=== PATIENT | male | born 2000 ===

== ENCOUNTER 2022-09-29 17:59 | Emergency (ER) | payer MEDICAID, SELFPAY ==
--- NOTE | ~2022-09-29 | XR_ITS ---
EXAMINATION: CHEST 2 VIEWS CLINICAL INFORMATION: productive cough, sob. COMPARISON: 06/06/2017. TECHNIQUE: PA and lateral views of the chest obtained. FINDINGS: The lungs are well expanded. No focal infiltrate, effusion, edema, or pneumothorax. Cardiac and mediastinal silhouettes are within normal limits for technique. No acute bony abnormality seen XR/XR chest 2V IMPRESSION: No evidence of acute disease
[2022-09-29 18:07] VITALS: BP 149/77; PULSE 114; RESP 20; TEMP 38.3; O2SAT 99; BMI 33.3
--- NOTE | 2022-09-29 18:09 | ED.ASTHMA ---
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 Patient states that he got sick yesterday after getting caught in the rain he states that he now has a cough which is productive of thick dark phlegm with no blood in the sputum. States that he has chest tightness which is worse with breathing worse with coughing. He has a history of asthma states he has had uses an asthma inhaler more frequently is become less effective. Patient is also complaining of headache, sore throat and postnasal drip.. He denied fever or chills. He had nausea with no vomiting. He denied myalgias or arthralgias. Related Data Previous Rx's Medication Instructions Recorded acetaminophen 500 mg tablet 1,000 mg PO Q6H PRN fever or pain 09/29/22 (Tylenol Extra Strength) #20 tabs albuterol sulfate 90 mcg/actuation 2 puff inhalation Q4-6H PRN 09/29/22 aerosol inhaler (ProAir HFA) shortness of breath or wheezing #8.5 grams doxycycline hyclate 100 mg tablet 100 mg PO Q12H 7 days #14 tabs 09/29/22 prednisone 20 mg tablet 60 mg PO DAILY 5 days #15 tabs 09/29/22 Allergies Allergy/AdvReac Type Severity Reaction Status Date / Time No Known Allergies Allergy Unverified 11/09/19 19:26 [No Known Allergies*] Review of Systems Review of Systems: Yes all other systems are reviewed and are negative [facility] Past Medical History [facility] Narrative: Past medical history: Asthma. Surgical history: Cholecystectomy. Social history: Denies tobacco use. He occasionally drinks alcohol. He denies drug use. Social History Social History Advance Directives: No Advance Directives Information Provided: No Physical Exam Vital Signs: Vital Signs: Last Vital Signs Temp 101.7 F H 09/29/22 20:31 Pulse 107 H 09/29/22 20:31 Resp 20 09/29/22 18:07 BP 130/80 09/29/22 20:31 Pulse Ox 99 09/29/22 20:31 O2 Del Method Room Air 09/29/22 20:31 BMI result Body Mass Index 33.3 Vital signs revealed an elevated temperature of a 101.7 degrees and an elevated pulse of 107 General: Awake, alert in no distress Head: Normocephalic, atraumatic EENT: PERRL, Lids normal, sclera normal, conjunctiva normal, nose normal , ears normal, throat without erythema or exudates Neck: Supple, no adenopathy, trachea midline and nontender Lung: breath sounds symmetric, mild diffuse wheezing, no rales or rhonchi Chest: symmetric movement, nontender Heart: regular rate and rhythm, normal S1, S2 no murmurs or rubs Abdomen: soft, non-tender, nondistended, normal bowel sounds Back: no vertebral tenderness, no CVAT Extremities: no deformities, moves all extremities symmetrically Skin: no rashes, no lesion, normal color and warmth Neuro: Awake, alert, oriented, normal speech, cranial nerves intact, moves all extremities symmetrically Psych: Pleasant, cooperative Course Course Course Narrative: RME - 21 yo male with history of asthma presents to the ER for evaluation of SOB, productive cough and subjective fevers since last night after being outside in the humid rain which he feels like exacerbated his asthma. He has been using his inhaler without improvement. Lungs CTAB in triage w/ SpO2 98%. Speaking in complete sentences. Febrile 100.9 with HR 110-120s.+sick contacts at work Plan: tylenol, CXR, viral swabs. Medications Administered Discontinued Medications Generic Name Dose Route Start Last Admin Trade Name Brendanq PRN Reason Stop Dose Admin Acetaminophen 975 mg 09/29/22 18:11 09/29/22 19:45 Acetaminophen 325 Mg Tablet PO 09/29/22 18:12 975 mg ONCE ONE Administration Doxycycline Monohydrate 100 mg 09/29/22 20:49 09/29/22 21:00 Doxycycline Monohydrate 100 Mg Capsule PO 09/29/22 20:50 100 mg ONCE STA Administration Prednisone 60 mg 09/29/22 20:49 09/29/22 21:00 Prednisone 20 Mg Tablet PO 09/29/22 20:50 60 mg ONCE ONE Administration Medical Decision Making Medical Decision Making MDM Narrative: 21-year-old male with a history of asthma who presents emergency department for evaluation of cough, shortness of breath, chest tightness x2 days. Patient's vital signs did reveal an elevated pulse and a fever pain. Lung exam revealed diffuse wheezing. Following evaluation was ordered chest x-ray, COVID-19, influenza and rapid strep. Laboratory evaluation revealed negative COVID-19 influenza and rapid strep. Chest x-ray revealed no evidence of pneumonia. Patient's presentation is consistent with acute bronchitis with asthma exacerbation. Patient was given prednisone 60 mg orally and doxycycline 100 mg orally. He was prescribed doxycycline 100 mg twice a day for 7 days and prednisone 60 mg once a day for 5 days. Differential Diagnosis Differential Diagnoses: The differential diagnosis associated with the presentation includes Differential diagnosis includes was not limited to acute viral syndrome, pneumonia, bronchitis, COVID-19, influenza, strep throat Admission/Observation Consideration of admission/observation: Escalation of care including admission/observation considered Lab Data [facility] Lab Attestation statement: I reviewed the patient's lab results. My interpretation of the patient's laboratory evaluation is as follows: COVID-19 was negative, influenza was negative, strep was negative Labs: Lab Results 09/29/22 09/29/22 09/29/22 Range/Units 18:15 18:15 19:49 COVID-19 (LILIANA) Negative (Negative) COVID-19 Clin Com See Note Influenza Type A (AKBAR) Negative (Negative) Influenza Type B (AKBAR) Negative (Negative) Influenza A & B Note See Note S. pyogenes GrpA AKBAR Negative (Negative) Independent Interpretation I performed an independent interpretation of an: Plain X-Ray Interpretation: My independent interpretation patient's two view chest x-ray is as follows: No acute findings Radiology Impression Discussion of test interpretation with radiology: I have reviewed the radiologist's reading. Radiologist Impression: XR chest 2V IMPRESSION: No evidence of acute disease Dictated By:Chepe Casillas MD Independent Historian Clinical information obtained from an independent historian. History obtained from or confirmed by: Other (Mother) Prescription Management I considered prescription management with: Antibiotic Chronic Conditions Patient?s care impacted by: Other (Asthma) Discharge Plan Discharge Clinical Impression: Bronchitis Asthma with exacerbation Qualifiers: Asthma severity: moderate Asthma persistence: unspecified Qualified Code(s): J45.901 - Unspecified asthma with (acute) exacerbation Patient Disposition: Home, Self-Care Instructions: Asthma (ED), Acute Bronchitis (ED) Additional Instructions: Take prednisone 20 mg pills, 3 pills once a day for 5 days. While you are taking prednisone, do not take any NSAIDs (Motrin, Advil, ibuprofen, Aleve, naproxen). Use the albuterol inhaler with the spacer, 2 puffs every 4-6 hours as needed for shortness of breath and wheezing.. Take Tylenol (acetaminophen) 500 mg pills, 2 pills every 6 hours as needed for pain or fever. Follow-up with your doctor in 2 days. Please return to the emergency department if your symptoms get worse or if you develop any symptoms that are concerning to you. Please see work note Prescriptions: New prednisone 20 mg tablet 60 mg PO DAILY 5 Days Qty: 15 0RF albuterol sulfate [ProAir HFA] 90 mcg/actuation HFA aerosol inhaler 2 puff inhalation Q4-6H PRN (Reason: shortness of breath or wheezing) Qty: 8.5 0RF doxycycline hyclate 100 mg tablet 100 mg PO Q12H 7 Days Qty: 14 0RF acetaminophen [Tylenol Extra Strength] 500 mg tablet 1,000 mg PO Q6H PRN (Reason: fever or pain) Qty: 20 0RF Stand Alone Forms: Work/School Release Interventions: ED Discharge Assessment Last Done: 09/29/22 21:04 Discharge Date/Time: 09/29/22 21:04 Print Language: Cypriot
[2022-09-29 19:10] LABS: COVID-19 Test Negative (Negative); IDNOW Serial# 55D5AD1C; IDNOW Serial# 9DB6401D; Influenza A Negative (Negative); Influenza B2 Negative (Negative)
[2022-09-29] MEDS: Acetaminophen 325 MG TABLET 975 MG PO (19:45)
[2022-09-29 20:18] LABS: IDNOW Serial# 08D9AD1C; Strep A Nucleic Acid Negative (Negative)
[2022-09-29 20:31] VITALS: BP 130/80; PULSE 107; TEMP 38.7; O2SAT 99
[2022-09-29] MEDS: predniSONE 20 MG TABLET 60 MG PO (21:00)
[2022-09-29] MEDS: Doxycycline Monohydrate 100 MG CAPSULE PO (21:00)
--- NOTE | 2022-09-29 21:02 | PC.NURSE ---
pt medicated per DARREN martinez w/ dietitian teaching at bedside
== END 2022-09-29 21:04 | disposition home or self-care (01) ==
PROVIDERS: Physician Assistant; Emergency Provider Emergency Medicine Emergency Medical Services
DX: J45.901 Unspecified asthma with (acute) exacerbation (principal); R06.02 Shortness of breath; Z20.822 Contact with and (suspected) exposure to COVID-19; Z20.828 Contact with and (suspected) exposure to other viral communicable diseases; Z79.899 Other long term (current) drug therapy
CPT/HCPCS: 71046; 87502; 87635; 87651; 99283

== ENCOUNTER 2022-10-14 08:08 | Emergency (ER) | payer MEDICAID, SELFPAY ==
--- NOTE | ~2022-10-14 | XR_ITS ---
EXAMINATION: XR CHEST CLINICAL INFORMATION: Anterior chest pressure. COMPARISON: 09/29/2022 chest radiographs. TECHNIQUE: Frontal view of the chest was obtained. FINDINGS: The lungs are clear. The heart and mediastinal structures are unremarkable. XR/XR chest 1V IMPRESSION: No acute cardiopulmonary process.
--- NOTE | ~2022-10-14 | CT_ITS ---
EXAMINATION: CT ANGIOGRAM OF THE CHEST WITH AND WITHOUT CONTRAST (CT PULMONARY ANGIOGRAM FOR PE) CLINICAL INFORMATION: Reason for Exam + dimer, SOB COMPARISON: None available. TECHNIQUE: Prior to contrast administration, noncontrast localization images were obtained. Subsequently, multidetector volumetric imaging was performed from the thoracic inlet to below the diaphragms following the administration of 65 mL Omnipaque 350 intravenous contrast. No contrast reaction reported Sagittal, coronal, and MIP oblique sagittal reformatted images were obtained on the CT workstation, uploaded to PACS, and reviewed. This CT examination was performed using dose optimization techniques as appropriate, variously including the following: *Automated exposure control *Adjustment of mA and/or kV according to patient size (this includes techniques or standardized protocols for targeted exams where dose is matched to indication/reason for exam; i.e. extremities or head) *Use of iterative reconstruction technique Total exam dose-length product 331 mGy-cm FINDINGS: HOSPITALITY SERVICES MANAGER: Negative QUALITY OF STUDY/CONTRAST BOLUS: Satisfactory. HEART AND GREAT VESSELS: Heart is not enlarged. No pericardial effusion. Degree of coronary calcifications: None. Nonaneurysmal aorta with patency of the aortic branch vessels. Pulmonary arteries are not enlarged and no intra-arterial filling defects identified to suggest pulmonary thromboembolism. No ventricular bowing or contrast reflux into the inferior vena cava into suggest right heart strain. LUNG: Trachea and bronchi are patent. Lingular consolidation with air bronchogram. Scattered atelectasis. Slight mosaic attenuation right upper lobe. No suspicious lung nodules. PLEURA: 3 mm right minor fissural lymph node. MEDIASTINUM: Unremarkable thyroid. Nonspecific lymph nodes, prevascular lymph node measuring 1.3 cm, right hilar lymph node measuring 1.6 cm. Small hiatal hernia. CHEST WALL/AXILLA: Nonspecific axillary lymph nodes. OSSEOUS STRUCTURES: No acute or suspicious osseous abnormality. UPPER ABDOMEN: Enlarged low density liver. Status post cholecystectomy. CT/CT angio chest PE protocol IMPRESSION: Lingular pneumonia. No CT evidence of pulmonary thromboembolism. Enlarged fatty liver. VTE: negative 6
--- NOTE | 2022-10-14 08:11 | ECG_ITS ---
Test Reason : CHEST PRESSURE Blood Pressure : / mmHG Vent. Rate : 082 BPM Atrial Rate : 082 BPM P-R Int : 140 ms QRS Dur : 102 ms QT Int : 370 ms P-R-T Axes : 057 -02 -13 degrees QTc Int : 432 ms Normal sinus rhythm Minimal voltage criteria for LVH, may be normal variant ( R in aVL ) Borderline ECG No previous ECGs available Referred By: Generic ED Physician Electronically Signed By:CINDI LANGSTON
--- NOTE | 2022-10-14 08:24 | ED_ITS ---
HPI - General Adult General Chief complaint: General Medical Stated complaint: chest pain, difficulty breathing Time Seen by Provider: 10/14/22 08:14 Source: patient Mode of arrival: ambulatory Limitations: no limitations History of Present Illness HPI narrative: This is a 21-year-old male without significant medical history presenting to the emergency department for evaluation of chest pain that started last night and is still currently present. Patient reports chest pain awoke him last night, he reports this chest pain was substernal with radiation into left arm and left back, he reports at the time the chest pain started pain was 30/10. Now reporting a constant substernal 5/10 chest pressure without radiation. Reporting some associated shortness of breath. Patient reports the chest pain is worse with deep breathing and better at rest. The patient does not know much about his family history however no known history of sudden cardiac . Patient does not smoke, no recent travel not on hormone replacement therapy. Patient denies fevers, chills, nausea, vomiting, abdominal pain, headache, v ision changes, dizziness and weakness Related Data Previous Rx's Medication Instructions Recorded acetaminophen 500 mg tablet 1,000 mg PO Q6H PRN fever or pain 09/29/22 (Tylenol Extra Strength) #20 tabs albuterol sulfate 90 mcg/actuation 2 puff inhalation Q4-6H PRN 09/29/22 aerosol inhaler (ProAir HFA) shortness of breath or wheezing #8.5 grams doxycycline hyclate 100 mg tablet 100 mg PO Q12H 7 days #14 tabs 09/29/22 prednisone 20 mg tablet 60 mg PO DAILY 5 days #15 tabs 09/29/22 albuterol sulfate 90 mcg/actuation 2 inh inhalation Q4-6H PRN 10/14/22 breath activated powder inhaler shortness of breath or wheezing #1 ea doxycycline hyclate 100 mg capsule 100 mg PO BID 10 days #20 caps 10/14/22 prednisone 20 mg tablet 20 mg PO DAILY 5 days #5 tabs 10/14/22 Allergies Allergy/AdvReac Type Severity Reaction Status Date / Time No Known Allergies Allergy Unverified 11/09/19 19:26 [No Known Allergies*] Review of Systems Review of Systems: Constitutional : No Weight loss, No Fever, No Chills, No Fatigue, No Malaise ENT/Mouth : No sore throat, No Rhinorrhea Eyes: No Eye Pain, No Swelling, No Redness Cardiovascular : + Chest Pain, + SOB, No Dyspnea on Exertion, No Orthopnea, No Edema, No Palpitations Respiratory : No Cough, No Sputum, No Wheezing Gastrointestinal : No Nausea, No Vomiting, No Diarrhea, No Constipation, No abdominal Pain, No Hematochezia, No Melena Genitourinary : No Dysuria, No Urinary Frequency, No Hematuria, Musculoskeletal : No joint pain, No Myalgias, No Joint Swelling Skin : No Skin Lesions, No rash Neuro : No Weakness, No Numbness, No Dizziness, No Headache Psych : No Anxiety/Panic, No Depression All other systems reviewed and are negative Yes all other systems are reviewed and are negative [facility] Past Medical History Attestation statement: The following information was validated with the patient. Source: old records reviewed and nursing notes reviewed Social History Social History Alcohol intake: never Smoked in Last 30 Days: No Use of substances other than those prescribed or required for medical reasons: No Advance Directives: No Physical Exam ED Vital Signs: Vital Signs - 24 hr 10/14/22 08:41 10/14/22 11:08 Temperature 99.0 F 98.4 F Pulse Rate 84 64 Respiratory Rate 16 16 Blood Pressure 118/72 123/67 Pulse Oximetry 98 100 Oxygen Delivery Method Room Air Room Air BMI result Body Mass Index 34.0 vss Appearance: Alert.? Oriented X3.? No acute distress.? Patient comfortable appearing Head: Normocephalic, atraumatic, no step-offs or deformities Eyes: Pupils equal, round and reactive to light.? ENT: Pharynx normal.? Neck: Normal inspection.? Neck supple.? CVS: Normal heart rate and rhythm.? Pulses normal.? Respiratory: No respiratory distress.? Breath sounds normal.? Abdomen: Soft and nontender.? Skin: Skin warm and dry.? Normal skin color.? Normal skin turgor.? Extremities: No lower extremity edema.? No calf ttp. 5/5 strength to bilateral upper and lower extremities Neuro: Oriented X 3.? No motor deficit.? No sensory deficit. CN 2-12 intact Course Reevaluation(s) Reevaluation #1: CBC within normal limits in normocytic anemia is noted. D-dimer negative, no need for CTA, low suspicion for PE, no significant risk factors, PERC negative. Chemistry pending & trop pending Time: 09:30 Reevaluation #2: Chemistry unremarkable, troponin negative, EKG nonischemic unlikely ACS 2nd troponin will be obtained. BNP within normal limits no signs of fluid overload or CHF on exam. Received a call from the lab this states that they made an error in patient's 1st D-dimer D-dimer now positive, will rule out PE with CTA at this time. Chest x-ray unremarkable. Pending CTA and re-evaluation. Time: 10:01 Reevaluation #3: CTA with lingular pneumonia, will treat with doxycycline and give him outpatient antibiotics, not hypoxic her meeting any criteria for inpatient admission. CT evidence of pulmonary thromboembolism, PTE negative. Patient's heart score is 0, no need for repeat troponin, EKG is nonischemic chest pain and shortness of breath likely secondary to pneumonia. Will treat with albuterol, doxycycline, prednisone discharge home with PCP follow-up. Will obtain ambulatory O2 prior to patient being discharged. Time: 11:07 Additional Reevaluation(s): Second troponin negative patient is ambulatory oxygen saturation from 93-97% on room air, not complaining of chest pain or shortness of breath with ambulation p atient feeling better. Likely patient having symptoms secondary to pneumonia. Will be discharged home on doxycycline, prednisone and albuterol peer Educated patient on diagnosis and treatment plan, answered all question, patient verbalizes understanding. At this time patient will be discharged home, advised to return with new or worsening symptoms. Educated on worrisome signs and symptoms and when to return. At this time I feel comfortable discharge home. Medications Administered Discontinued Medications Generic Name Dose Route Start Last Admin Trade Name Brendanq PRN Reason Stop Dose Admin Doxycycline Monohydrate 100 mg 10/14/22 11:09 10/14/22 11:15 Doxycycline Monohydrate 100 Mg Capsule PO 10/14/22 11:10 100 mg ONCE ONE Administration Sodium Chloride 1,000 mls @ 999 mls/hr 10/14/22 10:45 10/14/22 11:51 Ns IV 10/14/22 11:45 Infused .Q1H1M MANAN Infusion Iohexol 65 ml 10/14/22 10:31 10/14/22 10:31 Iohexol 350 Mg/Ml 100 Ml Infus..Btl IV 10/14/22 10:32 65 ml ONCE ONE Administration Ketorolac Tromethamine 30 mg 10/14/22 10:02 10/14/22 10:35 Ketorolac Tromethamine 15 Mg/Ml Vial IVPUSH 10/14/22 10:03 30 mg ONCE ONE Administration Ondansetron HCl 4 mg 10/14/22 10:29 10/14/22 10:35 Ondansetron Hcl 4 Mg/2 Ml Vial IVPUSH 10/14/22 10:30 4 mg ONCE ONE Administration Medical Decision Making Medical Decision Making [facility] Narrative: 08 21 year old male presents with pleuritic chest pain, shortness of breath that started last night, worse last night better this morning however still present. Physical exam benign. Patient well appearing. This is likely noncardiac related chest pain versus anxiety. However will rule out ACS, PE. Unlikely dissection, ruptured aneurysm, pneumothorax. Other differentials include viral illness. Unlikely pericarditis, endocarditis myocarditis. Plan at this time labs, EKG, D-dimer, BNP, chest x-ray. Differential Diagnosis Differential Diagnoses: The differential diagnosis associated with the presentation includes This is likely noncardiac related chest pain versus anxiety. However will rule out ACS, PE. Unlikely dissection, ruptured aneurysm, pneumothorax. Other differentials include viral illness. Unlikely pericarditis, endocarditis myocarditis. Admission/Observation Consideration of admission/observation: Escalation of care including admission/observation considered Lab Data [facility] Lab Attestation statement: I reviewed the patient's lab results. 10/14/22 08:40 10/14/22 08:40 Labs: Lab Results 10/14/22 10/14/22 10/14/22 Range/Units 08:40 08:40 08:40 WBC (4.8-10.8) X10*3/uL RBC (4.60-5.80) X10*6/uL Hgb (14.0-18.0) g/dl Hct (42.0-52.0) % MCV (80.0-98.0) fL MCH (27.0-33.0) pg MCHC (31.0-36.0) g/dl RDW (11.0-16.0) % Plt Count (160-400) X10*3/uL MPV (9.4-12.4) fL Immature Gran % (Auto) (0.0-0.4) % Neut % (Auto) (45-73) % Lymph % (Auto) (20-40) % [place] % (Auto) (2-11) % Eos % (Auto) (0-4) % Baso % (Auto) (0-2) % Lymph # (Auto) (1.2-4.9) X10*3/uL [place] # (Auto) (0.1-1.2) X10*3/uL Eos # (Auto) (0.0-0.4) X10*3/uL Baso # (Auto) (0.0-0.2) X10*3/uL Abs Immat Gran (auto) (0.00-0.03) X10*3/uL Absolute Neuts (auto) (2.0-8.3) x10*3/uL Absolute Nucleated RBC (0.0-0.012) X10*3/uL Nucleated RBC % (auto) (0.0-0.2) /100WBC PT (11.1-13.3) SEC INR (0.9-1.1) D-Dimer High Sensitivty Sodium 139 (135-145) mmol/L Potassium 4.1 (3.3-5.1) mmol/L Chloride 106 (96-108) mmol/L Carbon Dioxide 24 (22-29) mmol/L Anion Gap 13 (12-20) BUN 7 L (9-16) mg/dL Creatinine 0.71 (0.5-1.4) mg/dL Estim Creat Clear Calc 169.2 Estimated GFR > 60 Random Glucose 99 (60-115) mg/dL Calcium 9.5 (8.4-10.2) mg/dL Magnesium 2.0 (1.6-2.6) mg/dL Total Bilirubin 0.9 (0.0-1.0) mg/dL AST 24 (5-37) U/L ALT 30 (0-40) U/L Alkaline Phosphatase 71 (39-117) U/L Troponin I High Sens < 2.7 (<3.5-35.0) ng/L B-Natriuretic Peptide < 10 (<100) pg/mL Total Protein 7.4 (6.5-8.0) g/dL Albumin 4.2 (3.5-5.0) g/dL 10/14/22 10/14/22 10/14/22 Range/Units 08:40 09:10 09:10 WBC 9.4 (4.8-10.8) X10*3/uL RBC 5.07 (4.60-5.80) X10*6/uL Hgb 13.9 L (14.0-18.0) g/dl Hct 41.1 L (42.0-52.0) % MCV 81.1 (80.0-98.0) fL MCH 27.4 (27.0-33.0) pg MCHC 33.8 (31.0-36.0) g/dl RDW 13.2 (11.0-16.0) % Plt Count 301 (160-400) X10*3/uL MPV 9.4 (9.4-12.4) fL Immature Gran % (Auto) 1.0 H (0.0-0.4) % Neut % (Auto) 66.0 (45-73) % Lymph % (Auto) 21.0 (20-40) % [place] % (Auto) 8.1 (2-11) % Eos % (Auto) 3.4 (0-4) % Baso % (Auto) 0.5 (0-2) % Lymph # (Auto) 2.0 (1.2-4.9) X10*3/uL [place] # (Auto) 0.8 (0.1-1.2) X10*3/uL Eos # (Auto) 0.3 (0.0-0.4) X10*3/uL Baso # (Auto) 0.1 (0.0-0.2) X10*3/uL Abs Immat Gran (auto) 0.09 H (0.00-0.03) X10*3/uL Absolute Neuts (auto) 6.2 (2.0-8.3) x10*3/uL Absolute Nucleated RBC 0.000 (0.0-0.012) X10*3/uL Nucleated RBC % (auto) 0.0 (0.0-0.2) /100WBC PT 14.5 H (11.1-13.3) SEC INR 1.2 H (0.9-1.1) D-Dimer High Sensitivty TNP 262 Sodium (135-145) mmol/L Potassium (3.3-5.1) mmol/L Chloride (96-108) mmol/L Carbon Dioxide (22-29) mmol/L Anion Gap (12-20) BUN (9-16) mg/dL Creatinine (0.5-1.4) mg/dL Estim Creat Clear Calc Estimated GFR Random Glucose (60-115) mg/dL Calcium (8.4-10.2) mg/dL Magnesium (1.6-2.6) mg/dL Total Bilirubin (0.0-1.0) mg/dL AST (5-37) U/L ALT (0-40) U/L Alkaline Phosphatase (39-117) U/L Troponin I High Sens (<3.5-35.0) ng/L B-Natriuretic Peptide (<100) pg/mL Total Protein (6.5-8.0) g/dL Albumin (3.5-5.0) g/dL 10/14/22 Range/Units 11:13 WBC (4.8-10.8) X10*3/uL RBC (4.60-5.80) X10*6/uL Hgb (14.0-18.0) g/dl Hct (42.0-52.0) % MCV (80.0-98.0) fL MCH (27.0-33.0) pg MCHC (31.0-36.0) g/dl RDW (11.0-16.0) % Plt Count (160-400) X10*3/uL MPV (9.4-12.4) fL Immature Gran % (Auto) (0.0-0.4) % Neut % (Auto) (45-73) % Lymph % (Auto) (20-40) % [place] % (Auto) (2-11) % Eos % (Auto) (0-4) % Baso % (Auto) (0-2) % Lymph # (Auto) (1.2-4.9) X10*3/uL [place] # (Auto) (0.1-1.2) X10*3/uL Eos # (Auto) (0.0-0.4) X10*3/uL Baso # (Auto) (0.0-0.2) X10*3/uL Abs Immat Gran (auto) (0.00-0.03) X10*3/uL Absolute Neuts (auto) (2.0-8.3) x10*3/uL Absolute Nucleated RBC (0.0-0.012) X10*3/uL Nucleated RBC % (auto) (0.0-0.2) /100WBC PT (11.1-13.3) SEC INR (0.9-1.1) D-Dimer High Sensitivty Sodium (135-145) mmol/L Potassium (3.3-5.1) mmol/L Chloride (96-108) mmol/L Carbon Dioxide (22-29) mmol/L Anion Gap (12-20) BUN (9-16) mg/dL Creatinine (0.5-1.4) mg/dL Estim Creat Clear Calc Estimated GFR Random Glucose (60-115) mg/dL Calcium (8.4-10.2) mg/dL Magnesium (1.6-2.6) mg/dL Total Bilirubin (0.0-1.0) mg/dL AST (5-37) U/L ALT (0-40) U/L Alkaline Phosphatase (39-117) U/L Troponin I High Sens < 2.7 (<3.5-35.0) ng/L B-Natriuretic Peptide (<100) pg/mL Total Protein (6.5-8.0) g/dL Albumin (3.5-5.0) g/dL Independent Interpretation I performed an independent interpretation of an: EKG (Ventricular rate of 82, NV normal, QRS normal, QT/QTC normal. EKG with normal sinus rhythm no ST elevations or inversions concerning for acute ischemia.) and Plain X-Ray Radiology Impression Discussion of test interpretation with radiology: I have reviewed the radiologist's reading. Core Measures AMI core measures followed: Yes Measure exclusions: not indicated Critical Care Time Critical Care Time Critical Care Time: No Discharge Plan Discharge Clinical Impression: Pneumonia Patient Disposition: Home, Self-Care Additional Instructions: Take your medications as prescribed. If you were prescribed antibiotics today, it is important that you take your medication to their entirety, do not skip any doses, do not finish them early. Follow-up with your primary care provider this week. Return to the emergency department with new or worsening symptoms. Such as fevers, chills, chest pain, shortness of breath, nausea, vomiting, dizziness, headache, vision changes, lethargy In case of emergency call 911 XR/XR chest 1V IMPRESSION: No acute cardiopulmonary process. CT/CT angio chest PE protocol IMPRESSION: Lingular pneumonia. No CT evidence of pulmonary thromboembolism. Enlarged fatty liver. ? VTE: negative Prescriptions: New doxycycline hyclate 100 mg capsule 100 mg PO BID 10 Days Qty: 20 0RF prednisone 20 mg tablet 20 mg PO DAILY 5 Days Qty: 5 0RF albuterol sulfate 90 mcg/actuation aerosol powdr breath activated 2 inh inhalation Q4-6H PRN (Reason: shortness of breath or wheezing) Qty: 1 0RF No Action prednisone 20 mg tablet 60 mg PO DAILY 5 Days Qty: 15 0RF albuterol sulfate [ProAir HFA] 90 mcg/actuation HFA aerosol inhaler 2 puff inhalation Q4-6H PRN (Reason: shortness of breath or wheezing) Qty: 8.5 0RF doxycycline hyclate 100 mg tablet 100 mg PO Q12H 7 Days Qty: 14 0RF acetaminophen [Tylenol Extra Strength] 500 mg tablet 1,000 mg PO Q6H PRN (Reason: fever or pain) Qty: 20 0RF Referrals: [facility] Cardiovascular Services [Provider Group] - 3 days Physician,None [Primary Care Provider] - 2 days Stand Alone Forms: Work/School Release
[2022-10-14 08:41] VITALS: BP 118/72; PULSE 84; RESP 16; TEMP 37.2; O2SAT 98; BMI 34.0
[2022-10-14 09:06] LABS: B Type Natriuretic Peptide < 10 pg/mL (<100)
[2022-10-14 09:07] LABS: Troponin-I High Sensitivity < 2.7 ng/L (<3.5-35.0)
--- NOTE | 2022-10-14 09:13 | PC.NURSE ---
PT IS A/O X 4 NO SOB/GAYLE NOTED SPEAKS IN FULL SENTENCES. LUNGS - CTA. C/O CHEST PRESSURE. HEART SOUNDS REGULAR. ABD SOFT AND NON-TENDER. NO EDEMA NOTED. HEPLOCK # 18 TO R AC. PT AWARE OF PLAN OF CARE.
[2022-10-14 09:28] LABS: Basophils Absolute Auto 0.1 X10*3/uL (0.0-0.2); Basophils Percent Auto 0.5 % (0-2); Eosinophils Absolute Auto 0.3 X10*3/uL (0.0-0.4); Eosinophils Percent Auto 3.4 % (0-4); Hematocrit 41.1 % (42.0-52.0); Hemoglobin 13.9 g/dl (14.0-18.0); Imm Gran Abs Auto 0.09 X10*3/uL (0.00-0.03); Mean Corpuscular HGB Conc 33.8 g/dl (31.0-36.0); Mean Corpuscular Hemoglobin 27.4 pg (27.0-33.0); Mean Corpuscular Volume 81.1 fL (80.0-98.0); Mean Platelet Volume 9.4 fL (9.4-12.4); Monocytes Absolute Auto 0.8 X10*3/uL (0.1-1.2); Monocytes Percent Auto 8.1 % (2-11); Neutrophils Absolute Auto 6.2 x10*3/uL (2.0-8.3); Platelet Count 301 X10*3/uL (160-400); Red Blood Count 5.07 X10*6/uL (4.60-5.80); Red Cell Distribution Width 13.2 % (11.0-16.0); White Blood Count 9.4 X10*3/uL (4.8-10.8)
[2022-10-14 09:47] LABS: Alanine Aminotransferase 30 U/L (0-40); Albumin Level 4.2 g/dL (3.5-5.0); Alkaline Phosphatase 71 U/L (39-117); Anion Gap 13 (12-20); Aspartate Amino Transferase 24 U/L (5-37); Bilirubin Total 0.9 mg/dL (0.0-1.0); Blood Urea Nitrogen 7 mg/dL (9-16); Calcium 9.5 mg/dL (8.4-10.2); Carbon Dioxide 24 mmol/L (22-29); Chloride 106 mmol/L (96-108); Creatinine Clr Calc Pharmacy 169.2; Estimated Glomerular Filt Rate > 60; Glucose Random 99 mg/dL (60-115); Potassium 4.1 mmol/L (3.3-5.1); Sodium 139 mmol/L (135-145); Total Protein 7.4 g/dL (6.5-8.0)
[2022-10-14 09:50] LABS: D Dimer High Sensitivity 262 NG/ML; INTERNATIONAL NORM RATIO 1.2 (0.9-1.1); Prothrombin Time 14.5 SEC (11.1-13.3)
[2022-10-14] MEDS: iohexoL 350 MG/ML 100 ML INFUS..BTL 65 ML IV (10:31)
[2022-10-14] MEDS: ondansetron HCL 4 MG/2 ML VIAL IVPUSH (10:35)
[2022-10-14] MEDS: 0.9 % Sodium Chloride 1,000 ML 999 ML IV (10:35)
[2022-10-14] MEDS: Ketorolac Tromethamine 15 MG/ML VIAL 30 MG IVPUSH (10:35)
[2022-10-14 11:08] VITALS: BP 123/67; PULSE 64; RESP 16; TEMP 36.9; O2SAT 100
[2022-10-14] MEDS: Doxycycline Monohydrate 100 MG CAPSULE PO (11:15)
--- NOTE | 2022-10-14 11:27 | MHC.EDTECH ---
Patient ambulated with SP02 sensor per PA order. Patient O2 was 93% at the lowest, patient was comfortable.
[2022-10-14 11:41] LABS: Troponin-I High Sensitivity < 2.7 ng/L (<3.5-35.0)
== END 2022-10-14 12:42 | disposition home or self-care (01) ==
PROVIDERS: Physician Assistant; Emergency Provider Emergency Medicine
DX: J18.9 Pneumonia, unspecified organism (principal); R07.89 Other chest pain; R06.02 Shortness of breath; Z79.899 Other long term (current) drug therapy
CPT/HCPCS: 36415; 71045; 71275; 80053; 83735; 83880; 84484; 85025; 85379; 85610; 93005; 96361; 96374; 96375; 99284; 99285; J1885; J2405; Q9967

== ENCOUNTER 2023-01-11 21:06 | Emergency (ER) | payer MEDICAID, SELFPAY ==
[2023-01-11 21:19] VITALS: BP 141/88; PULSE 98; RESP 16; TEMP 37.2; O2SAT 100; BMI 34.6
--- NOTE | 2023-01-11 21:23 | ED_ITS ---
HPI - Allergic Reaction General Chief complaint: Allergic Reaction Stated complaint: ? allergic reaction to a med Time Seen by Provider: 01/11/23 21:17 History of Present Illness HPI narrative: Patient is a 22-year-old male presents today with having lip swelling that happened just prior to arrival. Patient questionably took 2 Advil earlier denies any fever chills. Denies any difficulty with voice. Denies any difficulty swallowing. No shortness of breath. Patient is from home no other changes in diet or medication. Patient is not on blood pressure medications. Related Data Previous Rx's Medication Instructions Recorded acetaminophen 500 mg tablet 1,000 mg (2 x 500 mg) PO Q6H PRN 09/29/22 (Tylenol Extra Strength) fever or pain #20 tabs albuterol sulfate 90 mcg/actuation 2 puff inhalation Q4-6H PRN 09/29/22 aerosol inhaler (ProAir HFA) shortness of breath or wheezing #8.5 grams doxycycline hyclate 100 mg tablet 100 mg PO Q12H 7 days #14 tabs 09/29/22 prednisone 20 mg tablet 60 mg (3 x 20 mg) PO DAILY 5 days 09/29/22 #15 tabs albuterol sulfate 90 mcg/actuation 2 inh inhalation Q4-6H PRN 10/14/22 breath activated powder inhaler shortness of breath or wheezing #1 ea doxycycline hyclate 100 mg capsule 100 mg PO BID 10 days #20 caps 10/14/22 prednisone 20 mg tablet 20 mg PO DAILY 5 days #5 tabs 10/14/22 diphenhydramine HCl 25 mg capsule 25 mg PO Q8H 5 days #15 caps 01/11/23 (Benadryl) epinephrine 0.3 mg/0.3 mL 0.3 mg (0.3 mL) IM ONCE PRN 01/11/23 injection, auto-injector (EpiPen) extreme reaction #1 ea famotidine 20 mg tablet (Pepcid) 20 mg PO BID 5 days #10 tabs 01/11/23 prednisone 20 mg tablet 40 mg (2 x 20 mg) PO DAILY #10 tabs 01/11/23 Allergies Allergy/AdvReac Type Severity Reaction Status Date / Time No Known Allergies Allergy Verified 01/11/23 21:22 [No Known Allergies*] Review of Systems 2 Review of Systems: No fever no chills no change in voice no shortness of breath no nausea no vomiting Yes all other systems are reviewed and are negative [facility] Past Medical History Attestation statement: The following information was validated with the patient. Social History Social History Alcohol intake: never Smoked in Last 30 Days: No Use of substances other than those prescribed or required for medical reasons: No Advance Directives: No Advance Directives Information Provided: Yes Physical Exam ED Vital Signs: Vital Signs - 24 hr 01/11/23 21:19 01/11/23 21:35 01/11/23 22:16 Temperature 98.9 F Pulse Rate 98 68 Respiratory Rate 16 16 Blood Pressure 141/88 H Pulse Oximetry 100 98 95 Oxygen Delivery Method Room Air Room Air Room Air BMI result Body Mass Index 34.6 Appearance: Alert. Oriented X3. No acute distress. Eyes: Pupils equal, round and reactive to light. ENT: Pharynx normal. positive minimal swelling to the lower lips. Voice is normal. Neck: Normal inspection. Neck supple. No lymph nodes noted. No crepitus CVS: Normal heart rate and rhythm. Pulses normal. Normal S1 and S2 Respiratory: No respiratory distress. Breath sounds normal. No Wheezing. No rales Abdomen: Soft and nontender. No rigidity. No distention. good BS x4 Skin: Skin warm and dry. Normal skin color. Normal skin turgor. Extremities: No lower extremity edema. Neurovascular intact to all extremities. No Lacerations. No Rash Neuro: Oriented X 3. No motor deficit. No sensory deficit. Moving all extermities. No slurred speech Medications Administered Discontinued Medications Generic Name Dose Route Start Last Admin Trade Name Brendanq PRN Reason Stop Dose Admin Diphenhydramine HCl 50 mg 01/11/23 21:23 01/11/23 21:28 Diphenhydramine Hcl 50 Mg/Ml Vial IVPUSH 01/11/23 21:24 50 mg ONCE ONE Administration Famotidine 20 mg 01/11/23 21:23 01/11/23 21:29 Famotidine/Pf 20 Mg/2 Ml Vial IVPUSH 01/11/23 21:24 20 mg ONCE ONE Administration Methylprednisolone Sodium Succinate 125 mg 01/11/23 21:23 01/11/23 21:28 Methylprednisolone Sod Succ 125 Mg/2 Ml Vial IVPUSH 01/11/23 21:24 125 mg ONCE ONE Administration Medical Decision Making Medical Decision Making [facility] Narrative: Positive lower lip swelling. Patient well. No changes in voice. No shortness of breath. Will monitor carefully. Steroids given. Benadryl and Pepcid given. patient monitor in the emergency department question symptoms secondary to angioedema versus allergic reaction. In no acute distress. After steroid Benadryl Pepcid symptoms seems to have improved. Will discharge patient home. Additional steroid additional Pepcid additional Benadryl EpiPen for diarrhea urgency avoid Motrin for now close follow-up on an outpatient basis Differential Diagnosis Differential Diagnoses: The differential diagnosis associated with the presentation includes allergic reaction, angioedema Admission/Observation Consideration of admission/observation: Escalation of care including admission/observation considered no need given patient's symptom improvement no posterior pharynx involvement Lab Data [facility] Lab Attestation statement: I reviewed the patient's lab results. 01/11/23 21:47 01/11/23 21:47 Labs: Lab Results 01/11/23 Range/Units 21:47 WBC 7.0 (4.8-10.8) X10*3/uL RBC 4.82 (4.60-5.80) X10*6/uL Hgb 13.4 L (14.0-18.0) g/dl Hct 39.3 L (42.0-52.0) % MCV 81.5 (80.0-98.0) fL MCH 27.8 (27.0-33.0) pg MCHC 34.1 (31.0-36.0) g/dl RDW 13.7 (11.0-16.0) % Plt Count 333 (160-400) X10*3/uL MPV 9.7 (9.4-12.4) fL Immature Gran % (Auto) 0.3 (0.0-0.4) % Neut % (Auto) 45.0 (45-73) % Lymph % (Auto) 38.3 (20-40) % [place] % (Auto) 9.6 (2-11) % Eos % (Auto) 5.6 H (0-4) % Baso % (Auto) 1.2 (0-2) % Lymph # (Auto) 2.7 (1.2-4.9) X10*3/uL [place] # (Auto) 0.7 (0.1-1.2) X10*3/uL Eos # (Auto) 0.4 (0.0-0.4) X10*3/uL Baso # (Auto) 0.1 (0.0-0.2) X10*3/uL Abs Immat Gran (auto) 0.02 (0.00-0.03) X10*3/uL Absolute Neuts (auto) 3.1 (2.0-8.3) x10*3/uL Absolute Nucleated RBC 0.000 (0.0-0.012) X10*3/uL Nucleated RBC % (auto) 0.0 (0.0-0.2) /100WBC Sodium 141 (135-145) mmol/L Potassium 3.6 (3.3-5.1) mmol/L Chloride 106 (96-108) mmol/L Carbon Dioxide 28 (22-29) mmol/L Anion Gap 11 L (12-20) BUN 10 (9-16) mg/dL Creatinine 0.97 (0.5-1.4) mg/dL Estim Creat Clear Calc 123.8 Estimated GFR > 60 Random Glucose 81 (60-115) mg/dL Calcium 9.5 (8.4-10.2) mg/dL Prescription Management I considered prescription management with: Pain Medication no need for pain medication Discharge Plan Discharge Clinical Impression: Allergic reaction, Angioedema Patient Disposition: Home, Self-Care Instructions: Angioedema (ED), General Allergic Reaction (ED) Prescriptions: New prednisone 20 mg tablet 40 mg PO DAILY Qty: 10 0RF famotidine [Pepcid] 20 mg tablet 20 mg PO BID 5 Days Qty: 10 0RF diphenhydramine HCl [Benadryl] 25 mg capsule 25 mg PO Q8H 5 Days Qty: 15 0RF epinephrine [EpiPen] 0.3 mg/0.3 mL auto-injector 0.3 mg IM ONCE PRN (Reason: extreme reaction) Qty: 1 0RF Rx Instructions: for 2 doses No Action prednisone 20 mg tablet 60 mg PO DAILY 5 Days Qty: 15 0RF albuterol sulfate [ProAir HFA] 90 mcg/actuation HFA aerosol inhaler 2 puff inhalation Q4-6H PRN (Reason: shortness of breath or wheezing) Qty: 8.5 0RF doxycycline hyclate 100 mg tablet 100 mg PO Q12H 7 Days Qty: 14 0RF acetaminophen [Tylenol Extra Strength] 500 mg tablet 1,000 mg PO Q6H PRN (Reason: fever or pain) Qty: 20 0RF doxycycline hyclate 100 mg capsule 100 mg PO BID 10 Days Qty: 20 0RF prednisone 20 mg tablet 20 mg PO DAILY 5 Days Qty: 5 0RF albuterol sulfate 90 mcg/actuation aerosol powdr breath activated 2 inh inhalation Q4-6H PRN (Reason: shortness of breath or wheezing) Qty: 1 0RF Referrals: Physician,None [Primary Care Provider] - 01/13/23 Print Language: Yakut
[2023-01-11] MEDS: methylPREDNISolone Sod Succ 125 MG/2 ML VIAL IVPUSH (21:28)
[2023-01-11] MEDS: diphenhydrAMINE HCL 50 MG/ML VIAL IVPUSH (21:28)
[2023-01-11] MEDS: Famotidine/PF 20 MG/2 ML VIAL IVPUSH (21:29)
--- NOTE | 2023-01-11 21:32 | PC.NURSE ---
pt coming from home reporting taking two advile for the first time in a long time. pt reports e started getting swollen lips, itchiness in throat and the feeling of his throat closing. pt lung sounds clear bilaterally, sating 100% on room ar. pt lips red but unsure of pt baseline. pt able to swallow and speak in full sentences at this time. throat noted to not be red. at bedside to discuss pt care. p medicated per apr, placed in right ac.
[2023-01-11 21:35] VITALS: O2SAT 98
[2023-01-11 21:51] LABS: MANUAL DIFF FLAG NO
[2023-01-11 21:52] LABS: Basophils Absolute Auto 0.1 X10*3/uL (0.0-0.2); Basophils Percent Auto 1.2 % (0-2); Eosinophils Absolute Auto 0.4 X10*3/uL (0.0-0.4); Eosinophils Percent Auto 5.6 % (0-4); Hematocrit 39.3 % (42.0-52.0); Hemoglobin 13.4 g/dl (14.0-18.0); Imm Gran Abs Auto 0.02 X10*3/uL (0.00-0.03); Imm Gran Pct Auto 0.3 % (0.0-0.4); Lymphocytes Absolute Auto 2.7 X10*3/uL (1.2-4.9); Lymphocytes Percent Auto 38.3 % (20-40); Mean Corpuscular HGB Conc 34.1 g/dl (31.0-36.0); Mean Corpuscular Hemoglobin 27.8 pg (27.0-33.0); Mean Corpuscular Volume 81.5 fL (80.0-98.0); Mean Platelet Volume 9.7 fL (9.4-12.4); Monocytes Absolute Auto 0.7 X10*3/uL (0.1-1.2); Monocytes Percent Auto 9.6 % (2-11); Neutrophils Absolute Auto 3.1 x10*3/uL (2.0-8.3); Platelet Count 333 X10*3/uL (160-400); Red Blood Count 4.82 X10*6/uL (4.60-5.80); Red Cell Distribution Width 13.7 % (11.0-16.0)
[2023-01-11 22:05] LABS: Anion Gap 11 (12-20); Blood Urea Nitrogen 10 mg/dL (9-16); Calcium 9.5 mg/dL (8.4-10.2); Carbon Dioxide 28 mmol/L (22-29); Chloride 106 mmol/L (96-108); Creatinine Clr Calc Pharmacy 123.8; Estimated Glomerular Filt Rate > 60; Glucose Random 81 mg/dL (60-115); Potassium 3.6 mmol/L (3.3-5.1); Sodium 141 mmol/L (135-145)
[2023-01-11 22:16] VITALS: PULSE 68; RESP 16; O2SAT 95
--- NOTE | 2023-01-11 22:18 | PC.NURSE ---
pt resting on stretcher comfortably, no acute distress noted at this time.
[2023-01-11 23:42] VITALS: BP 107/63; PULSE 65; RESP 16; TEMP 37; O2SAT 97
== END 2023-01-11 23:57 | disposition home or self-care (01) ==
PROVIDERS: Emergency Provider Emergency Medicine Emergency Medical Services
DX: T78.3XXA Angioneurotic edema, initial encounter (principal); T78.40XA Allergy, unspecified, initial encounter; X58.XXXA Exposure to other specified factors, initial encounter
CPT/HCPCS: 36415; 80048; 85025; 96374; 96375; 99284; J1200; J2930

== ENCOUNTER 2023-01-12 14:43 | Emergency (ER) | payer MEDICAID, SELFPAY | END 2023-01-12 16:15 | disposition left against medical advice (07) | PROVIDERS: Emergency Provider Emergency Medicine | DX: R06.02 Shortness of breath (principal) ==

== ENCOUNTER 2023-01-15 15:24 | Emergency (ER) | payer MEDICAID, SELFPAY ==
[2023-01-15 16:07] VITALS: BP 129/83; PULSE 101; RESP 20; TEMP 36.8; O2SAT 98; BMI 32.3
--- NOTE | 2023-01-15 17:59 | ED.GENADULT ---
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 He describes as the room spinning around him His symptoms are worse if he turns his head to the side He has never had similar episodes in the past He also reports some mild shortness of breath Denies any coughing, fevers, chills Patient was seen here 4 days ago on 01/11/2023 for allergic reaction that he believes was related to Advil He was discharged with prednisone, Benadryl, famotidine He believes that these medications started to make him feel dizzy so he stopped taking them 2 days ago He has no other complaints or concerns at this time No further lip swelling Related Data Previous Rx's Medication Instructions Recorded acetaminophen 500 mg tablet 1,000 mg (2 x 500 mg) PO Q6H PRN 09/29/22 (Tylenol Extra Strength) fever or pain #20 tabs albuterol sulfate 90 mcg/actuation 2 puff inhalation Q4-6H PRN 09/29/22 aerosol inhaler (ProAir HFA) shortness of breath or wheezing #8.5 grams doxycycline hyclate 100 mg tablet 100 mg PO Q12H 7 days #14 tabs 09/29/22 prednisone 20 mg tablet 60 mg (3 x 20 mg) PO DAILY 5 days 09/29/22 #15 tabs albuterol sulfate 90 mcg/actuation 2 inh inhalation Q4-6H PRN 10/14/22 breath activated powder inhaler shortness of breath or wheezing #1 ea doxycycline hyclate 100 mg capsule 100 mg PO BID 10 days #20 caps 10/14/22 prednisone 20 mg tablet 20 mg PO DAILY 5 days #5 tabs 10/14/22 diphenhydramine HCl 25 mg capsule 25 mg PO Q8H 5 days #15 caps 01/11/23 (Benadryl) epinephrine 0.3 mg/0.3 mL 0.3 mg (0.3 mL) IM ONCE PRN 01/11/23 injection, auto-injector (EpiPen) extreme reaction #1 ea famotidine 20 mg tablet (Pepcid) 20 mg PO BID 5 days #10 tabs 01/11/23 prednisone 20 mg tablet 40 mg (2 x 20 mg) PO DAILY #10 tabs 01/11/23 meclizine 25 mg tablet 25 mg PO TID PRN dizziness #20 tabs 01/15/23 Allergies Allergy/AdvReac Type Severity Reaction Status Date / Time ibuprofen [From Advil] Allergy Swelling Verified 01/15/23 16:11 Review of Systems Constitutional: Constitutional: Denies chills, Denies fever(s) and Denies headache(s) ENT: Reports dizziness, Denies headache(s) and Denies lip swelling Cardiovascular: Cardiovascular: Denies chest pain and Reports dyspnea Respiratory: Respiratory: Denies chest congestion, Denies cough and Reports dyspnea Gastrointestinal: Gastrointestinal: Denies abdominal pain, Denies nausea and Denies vomiting Musculoskeletal: Musculoskeletal: Denies back pain Neurologic: Reports dizziness and Denies headache(s) Allergic/Immunologic: Allergic/Immunologic: Denies lip swelling PMFSH Social History Alcohol intake: never Advance Directives: No Advance Directives Information Provided: No Physical Exam ED Vital Signs: Vital Signs - 24 hr 01/15/23 16:07 01/15/23 19:24 Temperature 98.2 F Pulse Rate 101 H 82 Respiratory Rate 20 17 Blood Pressure 129/83 125/85 Pulse Oximetry 98 97 Oxygen Delivery Method Room Air Room Air BMI result Body Mass Index 32.3 Const General: healthy appearing, comfortable, no acute distress, alert and awake Nutritional Appearance: well nourished Orientation/consciousness: patient oriented x3 [facility] Head: Yes normocephalic and Yes atraumatic Throat: Yes posterior oropharynx normal Eyes Eyelids: Yes eyelids normal Conjunctivae: conjunctivae normal Sclerae: sclerae normal Corneas: corneas normal Pupils: Equal, round and reactive pupils present EOM: EOMs intact bilaterally Neck Neck: Yes full ROM Resp Effort & Inspection: normal respiratory effort, able to speak in complete sentences, no audible wheezes and not labored Auscultation: clear to auscultation bilaterally GI Inspection: No distended Palpation (GI): Soft to palpation, not firm, nontender, no guarding and not rigid Skin General skin exam: no rashes or lesions noted and elasticity normal Neuro General: patient oriented x3 Cranial nerves: Yes Equal, round and reactive pupils present and Yes Bilaterally intact EOM present Cognition (Neuro): normal cognition Extrem Other: Moving all extremities well without any obvious deformities Course Course Course Narrative: This is a rapid medical exam: Additional HPI, ROS, PE not included below will be deferred to primary provider. Patient is a 22-year-old male presenting to the emergency department with complaint of dizziness for 2 days, has not been eating/drinking. Sweats/chills, shortness of breath. Denies fevers. Plan: swab for flu/Covid, EKG Reevaluation(s) Reevaluation #1: Patient reports feeling somewhat better but still feeling dizzy after is a meclizine. His workup in the ER was reassuring. This includes his labs, EKG as well as vital signs. Will discharge the patient with meclizine and he will follow-up with his PCP. He was given return precautions Time: 20:42 Medications Administered Discontinued Medications Generic Name Dose Route Start Last Admin Trade Name Lucio PRN Reason Stop Dose Admin Meclizine HCl 50 mg 01/15/23 19:24 01/15/23 19:36 Meclizine Hcl 25 Mg Tablet PO 01/15/23 19:25 50 mg ONCE ONE Administration Medical Decision Making Medical Decision Making [facility] Narrative: 22-year-old male presents for evaluation of dizziness that he describes as ?room spinning. ? His vital signs are stable, he remains ambulatory. His neurologic exam is reassuring. History exam is consistent with vertigo. Will treat with meclizine. Will check basic labs. It is possible this was related to side effects of the medications he was given 4 days ago. He is negative for COVID, influenza. I have no suspicion for posterior CVA. Will re-evaluate Differential Diagnosis Differential Diagnoses: The differential diagnosis associated with the presentation includes Vertigo Upper respiratory infection Viral syndrome Medication side effect Dehydration Hypoglycemia Lab Data [facility] Lab Attestation statement: I reviewed the patient's lab results. Mild leukocytosis to 11.1 K. This is possibly related to his prednisone use. Patient has a mild anemia with a hemoglobin 13.5 hematocrit 40.0. But no evidence of bleeding. Electrolytes within normal limits. 01/15/23 19:40 01/15/23 19:40 Labs: Lab Results 01/15/23 01/15/23 Range/Units 18:12 19:40 WBC 11.1 H (4.8-10.8) X10*3/uL RBC 4.88 (4.60-5.80) X10*6/uL Hgb 13.5 L (14.0-18.0) g/dl Hct 40.0 L (42.0-52.0) % MCV 82.0 (80.0-98.0) fL MCH 27.7 (27.0-33.0) pg MCHC 33.8 (31.0-36.0) g/dl RDW 13.8 (11.0-16.0) % Plt Count 362 (160-400) X10*3/uL MPV 9.8 (9.4-12.4) fL Immature Gran % (Auto) 1.1 H (0.0-0.4) % Neut % (Auto) 62.3 (45-73) % Lymph % (Auto) 27.0 (20-40) % [place] % (Auto) 7.7 (2-11) % Eos % (Auto) 1.1 (0-4) % Baso % (Auto) 0.8 (0-2) % Lymph # (Auto) 3.0 (1.2-4.9) X10*3/uL [place] # (Auto) 0.9 (0.1-1.2) X10*3/uL Eos # (Auto) 0.1 (0.0-0.4) X10*3/uL Baso # (Auto) 0.1 (0.0-0.2) X10*3/uL Abs Immat Gran (auto) 0.12 H (0.00-0.03) X10*3/uL Absolute Neuts (auto) 6.9 (2.0-8.3) x10*3/uL Absolute Nucleated RBC 0.000 (0.0-0.012) X10*3/uL Nucleated RBC % (auto) 0.0 (0.0-0.2) /100WBC Sodium 142 (135-145) mmol/L Potassium 3.8 (3.3-5.1) mmol/L Chloride 108 (96-108) mmol/L Carbon Dioxide 26 (22-29) mmol/L Anion Gap 12 (12-20) BUN 11 (9-16) mg/dL Creatinine 0.82 (0.5-1.4) mg/dL Estim Creat Clear Calc 146.5 Estimated GFR > 60 Random Glucose 100 (60-115) mg/dL Calcium 9.4 (8.4-10.2) mg/dL COVID-19 (LILINAA) Negative (Negative) COVID-19 Clin Com See Note Influenza Type A (AKBAR) Negative (Negative) Influenza Type B (AKBAR) Negative (Negative) Influenza A & B Note See Note Independent Interpretation I performed an independent interpretation of an: EKG (Normal sinus rhythm with a rate of 87 beats per minute.) Discharge Plan Discharge Clinical Impression: Vertigo Patient Disposition: Home, Self-Care Instructions: Vertigo (ED) Additional Instructions: Your workup in the emergency department today was reassuring. This includes your blood work, EKG, viral swab was. Take meclizine up to 3 times daily as needed for any further dizziness Hydrate well Follow-up with your primary doctor Prescriptions: New meclizine 25 mg tablet 25 mg PO TID PRN (Reason: dizziness) Qty: 20 0RF No Action prednisone 20 mg tablet 60 mg PO DAILY 5 Days Qty: 15 0RF albuterol sulfate [ProAir HFA] 90 mcg/actuation HFA aerosol inhaler 2 puff inhalation Q4-6H PRN (Reason: shortness of breath or wheezing) Qty: 8.5 0RF doxycycline hyclate 100 mg tablet 100 mg PO Q12H 7 Days Qty: 14 0RF acetaminophen [Tylenol Extra Strength] 500 mg tablet 1,000 mg PO Q6H PRN (Reason: fever or pain) Qty: 20 0RF doxycycline hyclate 100 mg capsule 100 mg PO BID 10 Days Qty: 20 0RF prednisone 20 mg tablet 20 mg PO DAILY 5 Days Qty: 5 0RF albuterol sulfate 90 mcg/actuation aerosol powdr breath activated 2 inh inhalation Q4-6H PRN (Reason: shortness of breath or wheezing) Qty: 1 0RF prednisone 20 mg tablet 40 mg PO DAILY Qty: 10 0RF famotidine [Pepcid] 20 mg tablet 20 mg PO BID 5 Days Qty: 10 0RF diphenhydramine HCl [Benadryl] 25 mg capsule 25 mg PO Q8H 5 Days Qty: 15 0RF epinephrine [EpiPen] 0.3 mg/0.3 mL auto-injector 0.3 mg IM ONCE PRN (Reason: extreme reaction) Qty: 1 0RF Rx Instructions: for 2 doses
--- NOTE | 2023-01-15 18:01 | ECG_ITS ---
Test Reason : DIZZINESS Blood Pressure : / mmHG Vent. Rate : 087 BPM Atrial Rate : 087 BPM P-R Int : 138 ms QRS Dur : 102 ms QT Int : 354 ms P-R-T Axes : 041 -04 -01 degrees QTc Int : 425 ms Normal sinus rhythm Minimal voltage criteria for LVH, may be normal variant ( R in aVL ) Borderline ECG When compared with ECG of 14-OCT-2022 08:24, No significant change was found Referred By: Sylvia Brody Electronically Signed By:GABBIE KAUR MD
[2023-01-15 18:48] LABS: IDNOW Serial# 08D9AD1C; Influenza A Negative (Negative); Influenza B2 Negative (Negative)
[2023-01-15 19:01] LABS: COVID-19 Test Negative (Negative); IDNOW Serial# BCCEAD1C
[2023-01-15 19:24] VITALS: BP 125/85; PULSE 82; RESP 17; O2SAT 97
--- NOTE | 2023-01-15 19:25 | PC.NURSE ---
pt reports dizziness since previous visit; worse with movement. also reports some sob. resp even and unlabored. lung sounds cta. sats 97% on RA. vss. glucose poc not done per Zheng SERRATO as he states will order labs. pt speaking full clear sentences. exam done with Zheng SERRATO and staff nuclear medicine technologist present. awaiting orders at this time.
[2023-01-15] MEDS: Meclizine HCl 25 MG TABLET 50 MG PO (19:36)
--- NOTE | 2023-01-15 19:37 | PC.NURSE ---
pt medicated per mar. alexandra pct at bedside for blood draw.
[2023-01-15 19:44] LABS: MANUAL DIFF FLAG NO
[2023-01-15 19:54] LABS: Basophils Absolute Auto 0.1 X10*3/uL (0.0-0.2); Basophils Percent Auto 0.8 % (0-2); Eosinophils Absolute Auto 0.1 X10*3/uL (0.0-0.4); Eosinophils Percent Auto 1.1 % (0-4); Hemoglobin 13.5 g/dl (14.0-18.0); Imm Gran Abs Auto 0.12 X10*3/uL (0.00-0.03); Imm Gran Pct Auto 1.1 % (0.0-0.4); Mean Corpuscular HGB Conc 33.8 g/dl (31.0-36.0); Mean Corpuscular Hemoglobin 27.7 pg (27.0-33.0); Mean Platelet Volume 9.8 fL (9.4-12.4); Monocytes Absolute Auto 0.9 X10*3/uL (0.1-1.2); Monocytes Percent Auto 7.7 % (2-11); Neutrophils Absolute Auto 6.9 x10*3/uL (2.0-8.3); Neutrophils Percent Auto 62.3 % (45-73); Platelet Count 362 X10*3/uL (160-400); Red Blood Count 4.88 X10*6/uL (4.60-5.80); Red Cell Distribution Width 13.8 % (11.0-16.0); White Blood Count 11.1 X10*3/uL (4.8-10.8)
[2023-01-15 20:06] LABS: Anion Gap 12 (12-20); Blood Urea Nitrogen 11 mg/dL (9-16); Calcium 9.4 mg/dL (8.4-10.2); Carbon Dioxide 26 mmol/L (22-29); Chloride 108 mmol/L (96-108); Creatinine Clr Calc Pharmacy 146.5; Estimated Glomerular Filt Rate > 60; Glucose Random 100 mg/dL (60-115); Potassium 3.8 mmol/L (3.3-5.1); Sodium 142 mmol/L (135-145)
== END 2023-01-15 20:53 | disposition home or self-care (01) ==
PROVIDERS: Physician Assistant; Registered Nurse Emergency; Emergency Provider Emergency Medicine Emergency Medical Services
DX: R42 Dizziness and giddiness (principal); R11.2 Nausea with vomiting, unspecified; Z11.52 Encounter for screening for COVID-19; Z20.822 Contact with and (suspected) exposure to COVID-19; Z79.899 Other long term (current) drug therapy
CPT/HCPCS: 36415; 80048; 85025; 87502; 87635; 93005; 99283; 99284

== ENCOUNTER 2023-01-21 17:43 | Emergency (ER) | payer MEDICAID, SELFPAY ==
[2023-01-21 18:06] VITALS: BP 130/78; PULSE 87; RESP 17; TEMP 36.6; O2SAT 98; BMI 33.8
--- NOTE | 2023-01-21 18:07 | ED_ITS ---
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 Patient is status post cholecystectomy and states that he continues to eat lots of García's. Related Data Previous Rx's Medication Instructions Recorded acetaminophen 500 mg tablet 1,000 mg (2 x 500 mg) PO Q6H PRN 09/29/22 (Tylenol Extra Strength) fever or pain #20 tabs albuterol sulfate 90 mcg/actuation 2 puff inhalation Q4-6H PRN 09/29/22 aerosol inhaler (ProAir HFA) shortness of breath or wheezing #8.5 grams doxycycline hyclate 100 mg tablet 100 mg PO Q12H 7 days #14 tabs 09/29/22 prednisone 20 mg tablet 60 mg (3 x 20 mg) PO DAILY 5 days 09/29/22 #15 tabs albuterol sulfate 90 mcg/actuation 2 inh inhalation Q4-6H PRN 10/14/22 breath activated powder inhaler shortness of breath or wheezing #1 ea doxycycline hyclate 100 mg capsule 100 mg PO BID 10 days #20 caps 10/14/22 prednisone 20 mg tablet 20 mg PO DAILY 5 days #5 tabs 10/14/22 diphenhydramine HCl 25 mg capsule 25 mg PO Q8H 5 days #15 caps 01/11/23 (Benadryl) epinephrine 0.3 mg/0.3 mL 0.3 mg (0.3 mL) IM ONCE PRN 01/11/23 injection, auto-injector (EpiPen) extreme reaction #1 ea famotidine 20 mg tablet (Pepcid) 20 mg PO BID 5 days #10 tabs 01/11/23 prednisone 20 mg tablet 40 mg (2 x 20 mg) PO DAILY #10 tabs 01/11/23 meclizine 25 mg tablet 25 mg PO TID PRN dizziness #20 tabs 01/15/23 omeprazole 20 mg capsule,delayed 20 mg PO DAILY #30 caps 01/21/23 release Allergies Allergy/AdvReac Type Severity Reaction Status Date / Time ibuprofen [From Advil] Allergy Swelling Verified 01/15/23 16:11 Review of Systems 2 Review of Systems: Or at positives and negatives as stated in HPI PMFSH Past Medical History Source: nursing notes reviewed Social History Social History Alcohol intake: never Smoked in Last 30 Days: No Use of substances other than those prescribed or required for medical reasons: No Advance Directives: No Advance Directives Information Provided: No Physical Exam ED Vital Signs: Vital Signs - 24 hr 01/21/23 18:06 01/21/23 21:11 01/21/23 21:35 Temperature 97.8 F 97.5 F 98 F Pulse Rate 87 82 86 Respiratory Rate 17 16 16 Blood Pressure 130/78 136/83 123/60 Pulse Oximetry 98 98 98 Oxygen Delivery Method Room Air Room Air Room Air BMI result Body Mass Index 33.8 VITAL SIGNS: Reviewed. GENERAL: Well developed, well nourished, in no acute distress. HEAD: Normocephalic/atraumatic EYES: PERRLA, EOMI EARS: Ext canals without abnormality, TMs non-bulging and non-erythematous NOSE: Nares patent bilateral OROPHARYNX: no oral lesions noted, posterior pharynx clear and non-erythematous without noted tonsillar enlargement/erythema/exudates NECK: Supple, no adenopathy LUNGS: Normal breath sounds. No adventitious sounds or accessory muscle use. SpO2<98> CARDIOVASCULAR: Regular rate and rhythm without noted murmurs ABDOMEN: Soft, non-tender, non-distended with bowel sounds. MUSCULOSKELETAL: No tenderness, deformities, or effusions noted on gross inspection. EXTREMITIES: No cyanosis, clubbing or edema. SKIN: Inspection of the skin reveals no rashes NEUROLOGIC: Alert and oriented x 4. Strength and sensation to light touch were grossly intact x 4. Course Course Course Narrative: This is a rapid medical exam: Additional HPI, ROS, PE not included below will be deferred to primary provider. Patient is a 22-year-old male with history of cholecystectomy presenting to the emergency department with complaint of periumbilical abdominal pain and sore throat for a few days. Denies fevers. Reports vomiting once yesterday and describes sore throat as a burning sensation and feels as though something is stuck in his throat making it difficult to swallow. Reports has been eating a lot of [employer] lately because he just started a new job and is unable to bring his own food. Plan: swab for flu/Covid, strep, labs Medications Administered Discontinued Medications Generic Name Dose Route Start Last Admin Trade Name Lucio PRN Reason Stop Dose Admin Al Hydroxide/Mg Hydroxide 30 ml 01/21/23 22:15 01/21/23 22:41 Magnesium Hydrox/Alum Hydrox 30 Ml Oral.Susp PO 01/21/23 22:16 30 ml ONCE ONE Administration Lidocaine HCl 10 ml 01/21/23 22:15 01/21/23 22:41 Lidocaine Hcl Viscous 2 % 15 Ml Solution MUCOUS MEM 01/21/23 22:16 10 ml ONCE ONE Administration Medical Decision Making Medical Decision Making [facility] Narrative: 22-year-old male with history and clinical presentation, DDX: Gastritis/GERD/increased fatty meals status post cholecystectomy unlikely significant amount of dyspepsia I reviewed all investigations and hematologic indices are grossly within normal limits without evidence of leukocytosis or left shift and in the absence fever arguing against any infectious process. There is also no evidence of anemia or thrombocytopenia. Chemistry indices are grossly within normal limits without demonstrated REID or electrolyte/liver enzyme derangements. Viral testing is negative for COVID/influenza/also noted to be negative for strep pharyngitis. My interpretation is that patient is experiencing these symptoms secondary to acid reflux as well as continuing to consume high fat meals in the absence of his gallbladder. Differential Diagnosis Differential Diagnoses: The differential diagnosis associated with the presentation includes Please see the discussion above Admission/Observation Consideration of admission/observation: Escalation of care including admission/observation considered Please see the discussion above Lab Data [facility] Lab Attestation statement: I reviewed the patient's lab results. Please see the discussion above 01/21/23 19:00 01/21/23 19:00 Labs: Lab Results 01/21/23 01/21/23 01/21/23 Range/Units 18:55 19:00 22:01 WBC 9.0 (4.8-10.8) X10*3/uL RBC 5.53 (4.60-5.80) X10*6/uL Hgb 15.1 (14.0-18.0) g/dl Hct 45.2 (42.0-52.0) % MCV 81.7 (80.0-98.0) fL MCH 27.3 (27.0-33.0) pg MCHC 33.4 (31.0-36.0) g/dl RDW 13.6 (11.0-16.0) % Plt Count 356 (160-400) X10*3/uL MPV 9.5 (9.4-12.4) fL Immature Gran % (Auto) 0.6 H (0.0-0.4) % Neut % (Auto) 63.9 (45-73) % Lymph % (Auto) 24.2 (20-40) % [place] % (Auto) 8.1 (2-11) % Eos % (Auto) 2.2 (0-4) % Baso % (Auto) 1.0 (0-2) % Lymph # (Auto) 2.2 (1.2-4.9) X10*3/uL [place] # (Auto) 0.7 (0.1-1.2) X10*3/uL Eos # (Auto) 0.2 (0.0-0.4) X10*3/uL Baso # (Auto) 0.1 (0.0-0.2) X10*3/uL Abs Immat Gran (auto) 0.05 H (0.00-0.03) X10*3/uL Absolute Neuts (auto) 5.7 (2.0-8.3) x10*3/uL Absolute Nucleated RBC 0.000 (0.0-0.012) X10*3/uL Nucleated RBC % (auto) 0.0 (0.0-0.2) /100WBC Sodium 135 (135-145) mmol/L Potassium 4.2 (3.3-5.1) mmol/L Chloride 105 (96-108) mmol/L Carbon Dioxide 21 L (22-29) mmol/L Anion Gap 13 (12-20) BUN 12 (9-16) mg/dL Creatinine 0.83 (0.5-1.4) mg/dL Estim Creat Clear Calc 143.1 Estimated GFR > 60 Random Glucose 96 (60-115) mg/dL Calcium 9.9 (8.4-10.2) mg/dL Total Bilirubin 0.5 (0.0-1.0) mg/dL AST 30 (5-37) U/L ALT 30 (0-40) U/L Alkaline Phosphatase 83 (39-117) U/L Total Protein 8.5 H (6.5-8.0) g/dL Albumin 4.5 (3.5-5.0) g/dL COVID-19 (LILIANA) Negative (Negative) COVID-19 Clin Com See Note Influenza Type A (AKBAR) Negative (Negative) Influenza Type B (AKBAR) Negative (Negative) Influenza A & B Note See Note S. pyogenes GrpA AKBAR Negative (Negative) External Record Review External record reviewed: Outpatient record and Prior outpatient labs Discharge Plan Discharge Clinical Impression: GERD (gastroesophageal reflux disease), Sore throat Patient Disposition: Home, Self-Care Instructions: Pharyngitis (ED), Diet for Stomach Ulcers and Gastritis (ED), Gastroesophageal Reflux Disease (ED) Additional Instructions: 1. Le recet? un medicamento para reducir los niveles de ?cido del est?jesus, ya que esto probablemente contribuya a kamara dolor de garganta. 2. Adem?s, debes reducir el contenido graso de tus comidas y esto probablemente mejorar? tus problemas estomacales. 3. Sharifa un seguimiento con kamara m?dico de atenci?n primaria en los pr?ximos 1 o 2 d?as. Regrese a la julián de emergencias si los s?ntomas empeoran. 1. I have prescribed you a medication to lower your acid levels from your stomach as this is probably contributing to your sore throat. 2. In addition, you need to lower the fatty content of your meals and this will likely improve your stomach issues. 3. Please follow-up with your primary care doctor in the next 1-2 days. Return to the ER for any worsening symptoms. Prescriptions: New omeprazole 20 mg capsule,delayed release(DR/EC) 20 mg PO DAILY Qty: 30 0RF No Action prednisone 20 mg tablet 60 mg PO DAILY 5 Days Qty: 15 0RF albuterol sulfate [ProAir HFA] 90 mcg/actuation HFA aerosol inhaler 2 puff inhalation Q4-6H PRN (Reason: shortness of breath or wheezing) Qty: 8.5 0RF doxycycline hyclate 100 mg tablet 100 mg PO Q12H 7 Days Qty: 14 0RF acetaminophen [Tylenol Extra Strength] 500 mg tablet 1,000 mg PO Q6H PRN (Reason: fever or pain) Qty: 20 0RF doxycycline hyclate 100 mg capsule 100 mg PO BID 10 Days Qty: 20 0RF prednisone 20 mg tablet 20 mg PO DAILY 5 Days Qty: 5 0RF albuterol sulfate 90 mcg/actuation aerosol powdr breath activated 2 inh inhalation Q4-6H PRN (Reason: shortness of breath or wheezing) Qty: 1 0RF prednisone 20 mg tablet 40 mg PO DAILY Qty: 10 0RF famotidine [Pepcid] 20 mg tablet 20 mg PO BID 5 Days Qty: 10 0RF diphenhydramine HCl [Benadryl] 25 mg capsule 25 mg PO Q8H 5 Days Qty: 15 0RF epinephrine [EpiPen] 0.3 mg/0.3 mL auto-injector 0.3 mg IM ONCE PRN (Reason: extreme reaction) Qty: 1 0RF Rx Instructions: for 2 doses meclizine 25 mg tablet 25 mg PO TID PRN (Reason: dizziness) Qty: 20 0RF Print Language: Malay
[2023-01-21 19:09] LABS: MANUAL DIFF FLAG NO
[2023-01-21 19:10] LABS: Basophils Absolute Auto 0.1 X10*3/uL (0.0-0.2); Eosinophils Absolute Auto 0.2 X10*3/uL (0.0-0.4); Eosinophils Percent Auto 2.2 % (0-4); Hematocrit 45.2 % (42.0-52.0); Hemoglobin 15.1 g/dl (14.0-18.0); Imm Gran Abs Auto 0.05 X10*3/uL (0.00-0.03); Imm Gran Pct Auto 0.6 % (0.0-0.4); Lymphocytes Absolute Auto 2.2 X10*3/uL (1.2-4.9); Lymphocytes Percent Auto 24.2 % (20-40); Mean Corpuscular HGB Conc 33.4 g/dl (31.0-36.0); Mean Corpuscular Hemoglobin 27.3 pg (27.0-33.0); Mean Corpuscular Volume 81.7 fL (80.0-98.0); Mean Platelet Volume 9.5 fL (9.4-12.4); Monocytes Absolute Auto 0.7 X10*3/uL (0.1-1.2); Monocytes Percent Auto 8.1 % (2-11); Neutrophils Absolute Auto 5.7 x10*3/uL (2.0-8.3); Neutrophils Percent Auto 63.9 % (45-73); Platelet Count 356 X10*3/uL (160-400); Red Blood Count 5.53 X10*6/uL (4.60-5.80); Red Cell Distribution Width 13.6 % (11.0-16.0)
[2023-01-21 19:22] LABS: IDNOW Serial# 08D9AD1C; Strep A Nucleic Acid Negative (Negative)
[2023-01-21 19:29] LABS: Alanine Aminotransferase 30 U/L (0-40); Albumin Level 4.5 g/dL (3.5-5.0); Alkaline Phosphatase 83 U/L (39-117); Anion Gap 13 (12-20); Aspartate Amino Transferase 30 U/L (5-37); Bilirubin Total 0.5 mg/dL (0.0-1.0); Blood Urea Nitrogen 12 mg/dL (9-16); Calcium 9.9 mg/dL (8.4-10.2); Carbon Dioxide 21 mmol/L (22-29); Chloride 105 mmol/L (96-108); Creatinine Clr Calc Pharmacy 143.1; Estimated Glomerular Filt Rate > 60; Glucose Random 96 mg/dL (60-115); Potassium 4.2 mmol/L (3.3-5.1); Sodium 135 mmol/L (135-145); Total Protein 8.5 g/dL (6.5-8.0)
[2023-01-21 21:11] VITALS: BP 136/83; PULSE 82; RESP 16; TEMP 36.4; O2SAT 98
[2023-01-21 21:35] VITALS: BP 123/60; PULSE 86; RESP 16; TEMP 36.6; O2SAT 98
[2023-01-21 22:28] LABS: IDNOW Serial# BCCEAD1C
[2023-01-21 22:29] LABS: COVID-19 Test Negative (Negative); IDNOW Serial# 08D9AD1C; Influenza A Negative (Negative); Influenza B2 Negative (Negative)
[2023-01-21] MEDS: Magnesium Hydrox/Alum Hydrox 30 ML ORAL.SUSP PO (22:41)
[2023-01-21] MEDS: Lidocaine HCl Viscous 2 % 15 ML SOLUTION 10 ML MUCOUS MEM (22:41)
== END 2023-01-21 23:04 | disposition home or self-care (01) ==
PROVIDERS: Registered Nurse Emergency; Emergency Provider Student in an Organized Health Care Education/Training Program
DX: K21.9 Gastro-esophageal reflux disease without esophagitis (principal); J02.9 Acute pharyngitis, unspecified; R50.9 Fever, unspecified; R05.9 Cough, unspecified; Z11.52 Encounter for screening for COVID-19; Z20.822 Contact with and (suspected) exposure to COVID-19; Z79.899 Other long term (current) drug therapy
CPT/HCPCS: 80053; 85025; 87502; 87635; 87651; 99283; 99284

== ENCOUNTER 2023-01-25 22:50 | Emergency (ER) | payer MEDICAID, SELFPAY ==
--- NOTE | ~2023-01-25 | XR_ITS ---
EXAMINATION: XR CHEST CLINICAL INFORMATION: Shortness of breath COMPARISON: CT chest and CT angiogram chest 10/14/2022 TECHNIQUE: 2 views of the chest were obtained. FINDINGS: No significant abnormality is noted involving the heart, lungs, mediastinum, bony thorax or soft tissues. The previously seen lingular pneumonia has cleared. XR/XR chest 2V IMPRESSION: Unremarkable examination.
--- NOTE | 2023-01-25 22:57 | ED.GENADULT ---
HPI - General Adult General Chief complaint: General Medical Stated complaint: asthma sob Time Seen by Provider: 01/26/23 02:55 Source: patient Mode of arrival: ambulatory Limitations: no limitations History of Present Illness HPI narrative: 22 yo male with PMH of fatty liver, asthma seen 3 times recently for GERD, abdominal pain here with c/o R sided abdominal pain for 1+ week with mucousy stools worried his liver is fatty due to eating García's. He notes he has no n/v/d and sometimes he feels winded. He states he has no PCP he was just Rx omeprazole but didn't take it today. He came in today as he is worried about his liver. MD complaint: liver pain Onset (ago): week(s) (1) Location: abdomen Radiation: non-radiation Severity: mild Quality: aching Pain Consistency: constant Relieving factors: none Exacerbating factors: eating Associated symptoms: denies other symptoms Treatments prior to arrival: none Related Data Previous Rx's Medication Instructions Recorded acetaminophen 500 mg tablet 1,000 mg (2 x 500 mg) PO Q6H PRN 09/29/22 (Tylenol Extra Strength) fever or pain #20 tabs albuterol sulfate 90 mcg/actuation 2 puff inhalation Q4-6H PRN 09/29/22 aerosol inhaler (ProAir HFA) shortness of breath or wheezing #8.5 grams doxycycline hyclate 100 mg tablet 100 mg PO Q12H 7 days #14 tabs 09/29/22 prednisone 20 mg tablet 60 mg (3 x 20 mg) PO DAILY 5 days 09/29/22 #15 tabs albuterol sulfate 90 mcg/actuation 2 inh inhalation Q4-6H PRN 10/14/22 breath activated powder inhaler shortness of breath or wheezing #1 ea doxycycline hyclate 100 mg capsule 100 mg PO BID 10 days #20 caps 10/14/22 prednisone 20 mg tablet 20 mg PO DAILY 5 days #5 tabs 10/14/22 diphenhydramine HCl 25 mg capsule 25 mg PO Q8H 5 days #15 caps 01/11/23 (Benadryl) epinephrine 0.3 mg/0.3 mL 0.3 mg (0.3 mL) IM ONCE PRN 01/11/23 injection, auto-injector (EpiPen) extreme reaction #1 ea famotidine 20 mg tablet (Pepcid) 20 mg PO BID 5 days #10 tabs 01/11/23 prednisone 20 mg tablet 40 mg (2 x 20 mg) PO DAILY #10 tabs 01/11/23 meclizine 25 mg tablet 25 mg PO TID PRN dizziness #20 tabs 01/15/23 omeprazole 20 mg capsule,delayed 20 mg PO DAILY #30 caps 01/21/23 release ondansetron 4 mg disintegrating 4 mg PO Q8H PRN nausea and 01/26/23 tablet vomiting #20 tabs Allergies Allergy/AdvReac Type Severity Reaction Status Date / Time ibuprofen [From Advil] Allergy Swelling Verified 01/15/23 16:11 Review of Systems Review of Systems: Constitutional : No Weight loss, No Fever, No Chills ENT/Mouth : No sore throat, No Rhinorrhea Eyes: No Swelling, No Redness Cardiovascular : No Chest Pain, No SOB, NoEdema Respiratory : No Cough, No Sputum, No Wheezing Gastrointestinal : no Nausea, no Vomiting, no Diarrhea, positive abdominal Pain, No Hematochezia, No Melena Genitourinary : No Dysuria, No Urinary Frequency, No Hematuria, No Urgency Musculoskeletal : No joint pain, No Myalgias, No Joint Swelling Skin : No Skin Lesions, No rash Neuro : No Weakness, No Numbness, No Dizziness, No Headache Psych : No Anxiety/Panic, No Depression Heme/Lymph: No Bruising, No Lymphadenopathy Endocrine : No Polyuria, No Polydipsia All other systems reviewed and are negative. [facility] Past Medical History Attestation statement: The following information was validated with the patient. Source: old records reviewed Medical History Fatty liver Asthma Surgical History S/P cholecystectomy Social History Social History Alcohol intake: never Smoked in Last 30 Days: No Use of substances other than those prescribed or required for medical reasons: No Advance Directives: No Advance Directives Information Provided: Yes Physical Exam ED Vital Signs: Vital Signs - 24 hr 01/25/23 22:59 01/26/23 00:16 01/26/23 02:43 Temperature 98.0 F 98.3 F Pulse Rate 84 83 85 Respiratory Rate 16 16 13 Blood Pressure 136/65 124/76 Pulse Oximetry 98 Oxygen Delivery Method Room Air Room Air BMI result Body Mass Index 33.0 Appearance: Alert. Oriented X3. No acute distress. Eyes: Pupils equal, round and reactive to light. ENT: Pharynx normal. Neck: Normal inspection. Neck supple. CVS: Normal heart rate and rhythm. Pulses normal. Respiratory: No respiratory distress. Breath sounds normal. Abdomen: Soft and nontender. I feel no palpable liver margin and there is no ascites Skin: Skin warm and dry. Normal skin color. Normal skin turgor. in both arm pits and axilla area there is red raised bumps noted seems like a heat rash or dermatitis no cellulitis or abscess Extremities: No lower extremity edema. No calf ttp Neuro: Oriented X 3. No motor deficit. No sensory deficit. Course Course Course Narrative: RME performed by Radha Gutierrez PA-C. Patient is a 22 year old assigned male at presenting to the emergency department with worsening asthma. Labs, imaging, and swabs ordered. Patient placed back in the waiting room pending room availability and results. Medications Administered Discontinued Medications Generic Name Dose Route Start Last Admin Trade Name Freq PRN Reason Stop Dose Admin Albuterol Sulfate 2 puff 01/26/23 00:01 01/26/23 00:15 Albuterol Sulfate 90 Mcg 8 Gm Inhaler INHALE 01/26/23 00:02 2 puff ONCE ONE Administration Medical Decision Making Medical Decision Making [facility] Narrative: 22 yo male no toxic here with c/o liver pain hx of same in the past at this time hx of same will need basic labs, covid swab, EKG, he has a benign exam and I do not feel he has an enlarged liver on clinical exam this is an ongoing issue will continue PPI refer to GI and avoid NSAIDs. He is not toxic appearing and has chronic loose stools since cholecystectomy. His complaints could be resolving colitis, fatty liver but need outpatient work up will refer to GI Differential Diagnosis Differential Diagnoses: The differential diagnosis associated with the presentation includes colitis, diarrhea, abdominal pain, fatty liver Admission/Observation Consideration of admission/observation: Escalation of care including admission/observation considered labs stable, can be managed as outpatient Lab Data [facility] Lab Attestation statement: I reviewed the patient's lab results. 01/26/23 00:04 01/26/23 00:04 Labs: Lab Results 01/26/23 01/26/23 Range/Units 00:04 00:05 WBC 9.8 (4.8-10.8) X10*3/uL RBC 4.67 (4.60-5.80) X10*6/uL Hgb 12.9 L (14.0-18.0) g/dl Hct 38.1 L (42.0-52.0) % MCV 81.6 (80.0-98.0) fL MCH 27.6 (27.0-33.0) pg MCHC 33.9 (31.0-36.0) g/dl RDW 13.3 (11.0-16.0) % Plt Count 317 (160-400) X10*3/uL MPV 9.6 (9.4-12.4) fL Immature Gran % (Auto) 0.3 (0.0-0.4) % Neut % (Auto) 67.8 (45-73) % Lymph % (Auto) 22.2 (20-40) % [place] % (Auto) 6.7 (2-11) % Eos % (Auto) 2.4 (0-4) % Baso % (Auto) 0.6 (0-2) % Lymph # (Auto) 2.2 (1.2-4.9) X10*3/uL [place] # (Auto) 0.7 (0.1-1.2) X10*3/uL Eos # (Auto) 0.2 (0.0-0.4) X10*3/uL Baso # (Auto) 0.1 (0.0-0.2) X10*3/uL Abs Immat Gran (auto) 0.03 (0.00-0.03) X10*3/uL Absolute Neuts (auto) 6.7 (2.0-8.3) x10*3/uL Absolute Nucleated RBC 0.000 (0.0-0.012) X10*3/uL Nucleated RBC % (auto) 0.0 (0.0-0.2) /100WBC Sodium 141 (135-145) mmol/L Potassium 3.4 (3.3-5.1) mmol/L Chloride 108 (96-108) mmol/L Carbon Dioxide 23 (22-29) mmol/L Anion Gap 13 (12-20) BUN 8 L (9-16) mg/dL Creatinine 0.76 (0.5-1.4) mg/dL Estim Creat Clear Calc 154.5 Estimated GFR > 60 Random Glucose 102 (60-115) mg/dL Calcium 9.5 (8.4-10.2) mg/dL Magnesium 1.9 (1.6-2.6) mg/dL Total Bilirubin 0.5 (0.0-1.0) mg/dL AST 21 (5-37) U/L ALT 25 (0-40) U/L Alkaline Phosphatase 71 (39-117) U/L Troponin I High Sens < 2.7 (<3.5-35.0) ng/L Total Protein 7.5 (6.5-8.0) g/dL Albumin 4.3 (3.5-5.0) g/dL Influenza Type A (PCR) NEGATIVE (Negative) Influenza Type B (PCR) NEGATIVE (Negative) RSV RNA Qual (PCR) NEGATIVE (Negative) SARS-CoV-2 RNA (RT-PCR) NEGATIVE (Negative) Independent Interpretation I performed an independent interpretation of an: EKG and Plain X-Ray (normal ) Interpretation: Rate: 72 Rhythm: NSR Louin: normal Normal P waves. Normal SUJATA. Normal QRS complex. ST T wave : normal no acute ischemia qTC: normal prior studies: no acute ischemia The study has been interpreted contemporaneously by me. . Radiology Impression Discussion of test interpretation with radiology: I have reviewed the radiologist's reading. Independent Historian Clinical information obtained from an independent historian. History obtained from or confirmed by: Spouse External Record Review External record reviewed: Inpatient record Discharge Plan Discharge Clinical Impression: Abdominal pain Qualifiers: Abdominal location: right upper quadrant Qualified Code(s): R10.11 - Right upper quadrant pain Patient Disposition: Home, Self-Care Instructions: Abdominal Pain (ED) Additional Instructions: continue your omeprazole, eat a bland diet for 3 days. eat a low fat diet. return for worsening pain, fevers, vomiting, inability to eat or drink. you need to follow up a primary care doctor and GI doctor Contin?e con omeprazol y coma deborah dieta blanda abhishek 3 d?as. comer deborah dieta baja en grasas. Regrese si el dolor empeora, fiebre, v?mitos, incapacidad para comer o beber. necesita realizar un seguimiento con un m?dico de atenci?n primaria y un m?dico gastrointestinal Prescriptions: New ondansetron 4 mg tablet,disintegrating 4 mg PO Q8H PRN (Reason: nausea and vomiting) Qty: 20 0RF No Action prednisone 20 mg tablet 60 mg PO DAILY 5 Days Qty: 15 0RF albuterol sulfate [ProAir HFA] 90 mcg/actuation HFA aerosol inhaler 2 puff inhalation Q4-6H PRN (Reason: shortness of breath or wheezing) Qty: 8.5 0RF doxycycline hyclate 100 mg tablet 100 mg PO Q12H 7 Days Qty: 14 0RF acetaminophen [Tylenol Extra Strength] 500 mg tablet 1,000 mg PO Q6H PRN (Reason: fever or pain) Qty: 20 0RF doxycycline hyclate 100 mg capsule 100 mg PO BID 10 Days Qty: 20 0RF prednisone 20 mg tablet 20 mg PO DAILY 5 Days Qty: 5 0RF albuterol sulfate 90 mcg/actuation aerosol powdr breath activated 2 inh inhalation Q4-6H PRN (Reason: shortness of breath or wheezing) Qty: 1 0RF omeprazole 20 mg capsule,delayed release(DR/EC) 20 mg PO DAILY Qty: 30 0RF prednisone 20 mg tablet 40 mg PO DAILY Qty: 10 0RF famotidine [Pepcid] 20 mg tablet 20 mg PO BID 5 Days Qty: 10 0RF diphenhydramine HCl [Benadryl] 25 mg capsule 25 mg PO Q8H 5 Days Qty: 15 0RF epinephrine [EpiPen] 0.3 mg/0.3 mL auto-injector 0.3 mg IM ONCE PRN (Reason: extreme reaction) Qty: 1 0RF Rx Instructions: for 2 doses meclizine 25 mg tablet 25 mg PO TID PRN (Reason: dizziness) Qty: 20 0RF Referrals: Kendrick Nino MD [Physician] - Print Language: English
--- NOTE | 2023-01-25 22:58 | ECG_ITS ---
Test Reason : DYSPNEA Blood Pressure : / mmHG Vent. Rate : 072 BPM Atrial Rate : 072 BPM P-R Int : 152 ms QRS Dur : 108 ms QT Int : 382 ms P-R-T Axes : 062 000 -12 degrees QTc Int : 418 ms Normal sinus rhythm with sinus arrhythmia Minimal voltage criteria for LVH, may be normal variant ( R in aVL ) Borderline ECG When compared with ECG of 15-JAN-2023 18:09, No significant change was found Referred By: Radha Gutierrez Electronically Signed By:BRIONNA LOWRY
[2023-01-25 22:59] VITALS: BP 136/65; PULSE 84; RESP 16; TEMP 36.7; BMI 33.0
[2023-01-26 00:15] LABS: MANUAL DIFF FLAG NO
[2023-01-26] MEDS: Albuterol Sulfate 90 MCG 8 GM INHALER 2 PUFF INHALE (00:15)
[2023-01-26 00:16] VITALS: PULSE 83; RESP 16; O2SAT 98
[2023-01-26 00:18] LABS: Basophils Absolute Auto 0.1 X10*3/uL (0.0-0.2); Basophils Percent Auto 0.6 % (0-2); Eosinophils Absolute Auto 0.2 X10*3/uL (0.0-0.4); Eosinophils Percent Auto 2.4 % (0-4); Hematocrit 38.1 % (42.0-52.0); Hemoglobin 12.9 g/dl (14.0-18.0); Imm Gran Abs Auto 0.03 X10*3/uL (0.00-0.03); Imm Gran Pct Auto 0.3 % (0.0-0.4); Lymphocytes Absolute Auto 2.2 X10*3/uL (1.2-4.9); Lymphocytes Percent Auto 22.2 % (20-40); Mean Corpuscular HGB Conc 33.9 g/dl (31.0-36.0); Mean Corpuscular Hemoglobin 27.6 pg (27.0-33.0); Mean Corpuscular Volume 81.6 fL (80.0-98.0); Mean Platelet Volume 9.6 fL (9.4-12.4); Monocytes Absolute Auto 0.7 X10*3/uL (0.1-1.2); Monocytes Percent Auto 6.7 % (2-11); Neutrophils Absolute Auto 6.7 x10*3/uL (2.0-8.3); Neutrophils Percent Auto 67.8 % (45-73); Platelet Count 317 X10*3/uL (160-400); Red Blood Count 4.67 X10*6/uL (4.60-5.80); Red Cell Distribution Width 13.3 % (11.0-16.0); White Blood Count 9.8 X10*3/uL (4.8-10.8)
[2023-01-26 00:40] LABS: Troponin-I High Sensitivity < 2.7 ng/L (<3.5-35.0)
[2023-01-26 00:50] LABS: Alanine Aminotransferase 25 U/L (0-40); Albumin Level 4.3 g/dL (3.5-5.0); Alkaline Phosphatase 71 U/L (39-117); Anion Gap 13 (12-20); Aspartate Amino Transferase 21 U/L (5-37); Bilirubin Total 0.5 mg/dL (0.0-1.0); Blood Urea Nitrogen 8 mg/dL (9-16); Calcium 9.5 mg/dL (8.4-10.2); Carbon Dioxide 23 mmol/L (22-29); Chloride 108 mmol/L (96-108); Creatinine Clr Calc Pharmacy 154.5; Estimated Glomerular Filt Rate > 60; Glucose Random 102 mg/dL (60-115); Magnesium 1.9 mg/dL (1.6-2.6); Potassium 3.4 mmol/L (3.3-5.1); Sodium 141 mmol/L (135-145); Total Protein 7.5 g/dL (6.5-8.0)
[2023-01-26 02:43] VITALS: BP 124/76; PULSE 85; RESP 13; TEMP 36.8; O2SAT 98
--- NOTE | 2023-01-26 03:02 | PC.NURSE ---
Pt presents to ED for right sided abd pain. Pt was seen here three times last week for same. Pt has been noticing bloating anytime he eats food, and has not eaten much over the past 4 days. Pt stated he has eaten a lot of mcdonalds recently. Pt reports he does not have a gallbladder. He is concerned that something may be wrong with his liver, based on location of pain, clear soft bowel movements, and yellow spots pt has noticed on his arms, as well as increased lethargy. Pt stated the pain feels tight, 5/10 and constant. Pt waiting to be seen by provider at this time.
[2023-01-26 03:30] LABS: Influenza A PCR NEGATIVE (Negative); Influenza B PCR NEGATIVE (Negative); Resp Syncy Virus RNA Qual PCR NEGATIVE (Negative); SARS COV2 PCR INHOUSE NEGATIVE (Negative)
== END 2023-01-26 04:18 | disposition home or self-care (01) ==
PROVIDERS: Physician Assistant Medical; Emergency Provider Emergency Medicine
DX: R06.02 Shortness of breath (principal); I49.9 Cardiac arrhythmia, unspecified; R10.11 Right upper quadrant pain; R11.2 Nausea with vomiting, unspecified; Z20.822 Contact with and (suspected) exposure to COVID-19; Z20.828 Contact with and (suspected) exposure to other viral communicable diseases; Z79.899 Other long term (current) drug therapy
CPT/HCPCS: 0241U; 71046; 80053; 83735; 84484; 85025; 93005; 94640; 94664; 99284; 99285

== ENCOUNTER → 2023-01-25 22:58 | Outpatient (BNV) | payer MEDICAID, SELFPAY | PROVIDERS: Emergency Provider Emergency Medicine; Visit Provider Internal Medicine | DX: R06.02 Shortness of breath (principal) | CPT/HCPCS: 93010 ==

== ENCOUNTER 2023-01-28 12:48 | Emergency (ER) | payer MEDICAID, SELFPAY ==
--- NOTE | ~2023-01-28 | US_ITS ---
EXAMINATION: US ABDOMEN LIMITED CLINICAL INFORMATION: Right upper quadrant pain. COMPARISON: None available. TECHNIQUE: Real-time imaging of the right upper quadrant abdominal viscera. FINDINGS: Very limited examination secondary to shadowing from the rib cage, body habitus and shadowing from overlying bowel gas. PANCREAS: Not well seen. LIVER: Partially visualized with overall normal size and echogenicity. No discrete mass. No intrahepatic biliary ductal dilatation. GALLBLADDER: Cholecystectomy. COMMON BILE DUCT: Partially seen measuring up to 0.2 cm in diameter. RIGHT KIDNEY: No hydronephrosis. No renal calculi or focal parenchymal lesions. The kidney measures 10 cm in maximum dimension. FREE FLUID: None. US/US abdomen limited IMPRESSION: 1. Very limited examination secondary to shadowing from overlying bowel gas and body habitus. 2. No acute sonographic abnormalities.
--- NOTE | 2023-01-28 14:08 | ED_ITS ---
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 States he has been unable to eat much at all for the past several days due to this pain. Reports he has primarily been eating soup. Denies any nausea, vomiting, diarrhea, constipation. Denies fevers. States he has been taking omeprazole but not daily. States he was told to begin taking a probiotic, also has not been taking this daily. Denies any hematochezia or melena. Went to urgent care today regarding his symptoms and was advised to be evaluated in the emergency department. Patient has been seen in this ED 3 times previously within the last month for similar complaint. MD elicited complaint: abdominal pain Pertinent past history: other (Cholecystectomy, GERD) Onset (ago): week(s) Pain Consistency: constant Location: epigastric and RUQ Severity: severe Quality: aching Radiation: none Migration to: no migration Exacerbating factors: eating Relieving factors: nothing Associated symptoms: denies other symptoms Treatments prior to arrival: other Related Data Previous Rx's Medication Instructions Recorded acetaminophen 500 mg tablet 1,000 mg (2 x 500 mg) PO Q6H PRN 09/29/22 (Tylenol Extra Strength) fever or pain #20 tabs albuterol sulfate 90 mcg/actuation 2 puff inhalation Q4-6H PRN 09/29/22 aerosol inhaler (ProAir HFA) shortness of breath or wheezing #8.5 grams doxycycline hyclate 100 mg tablet 100 mg PO Q12H 7 days #14 tabs 09/29/22 prednisone 20 mg tablet 60 mg (3 x 20 mg) PO DAILY 5 days 09/29/22 #15 tabs albuterol sulfate 90 mcg/actuation 2 inh inhalation Q4-6H PRN 10/14/22 breath activated powder inhaler shortness of breath or wheezing #1 ea doxycycline hyclate 100 mg capsule 100 mg PO BID 10 days #20 caps 10/14/22 prednisone 20 mg tablet 20 mg PO DAILY 5 days #5 tabs 08/23/23 diphenhydramine HCl 25 mg capsule 25 mg PO Q8H 5 days #15 caps 01/11/23 (Benadryl) epinephrine 0.3 mg/0.3 mL 0.3 mg (0.3 mL) IM ONCE PRN 01/11/23 injection, auto-injector (EpiPen) extreme reaction #1 ea famotidine 20 mg tablet (Pepcid) 20 mg PO BID 5 days #10 tabs 01/11/23 prednisone 20 mg tablet 40 mg (2 x 20 mg) PO DAILY #10 tabs 01/11/23 meclizine 25 mg tablet 25 mg PO TID PRN dizziness #20 tabs 01/15/23 omeprazole 20 mg capsule,delayed 20 mg PO DAILY #30 caps 01/21/23 release ondansetron 4 mg disintegrating 4 mg PO Q8H PRN nausea and 01/26/23 tablet vomiting #20 tabs Allergies Allergy/AdvReac Type Severity Reaction Status Date / Time ibuprofen [From Advil] Allergy Swelling Verified 01/15/23 16:11 Review of Systems Review of Systems As per HPI. Yes all other systems are reviewed and are negative Constitutional: Reports as per HPI [facility] Past Medical History Medical History Fatty liver Asthma Surgical History S/P cholecystectomy Social History Social History Alcohol intake: never Advance Directives: No Advance Directives Information Provided: No Physical Exam ED Vital Signs: Vital Signs - 24 hr 01/28/23 14:09 01/28/23 20:35 01/28/23 21:58 Temperature 97.9 F 98.3 F 97.4 F Pulse Rate 77 84 78 Respiratory Rate 18 16 16 Blood Pressure 132/79 119/79 114/58 L Pulse Oximetry 98 98 97 Oxygen Delivery Method Room Air Room Air Room Air 01/29/23 00:00 Temperature 98.2 F Pulse Rate 79 Respiratory Rate 16 Blood Pressure 128/71 Pulse Oximetry 97 Oxygen Delivery Method Room Air BMI result Body Mass Index 31.6 Vital signs have been reviewed and appear to be correct. Blood pressure normal. Heart rate normal. Respiratory rate normal. Temperature normal. Oxygen saturation normal. Const General: cooperative, healthy appearing and no acute distress Orientation/consciousness: oriented to person, oriented to place, oriented to time and patient oriented x3 Limitations: no limitations HENMT Head: Yes normocephalic and Yes atraumatic Ears: external ears normal General nose exam: Normal external nose present Face and sinus: Yes face symmetric Mouth: oropharynx normal and moist mucous membranes Throat: Yes uvula midline Eyes Pupils: Equal, round and reactive pupils present Neck Neck: Yes normal visual inspection and Yes supple Resp Effort & Inspection: normal respiratory effort and able to speak in complete sentences Auscultation: clear to auscultation bilaterally Cardio Rate: regular rate Rhythm: regular rhythm Heart sounds: S1 normal heart sound present and S2 normal heart sound present GI Palpation (GI): Soft to palpation, Tenderness to palpation present (GI) (mild tenderness) in the epigastrum and in the RUQ, no guarding, not rigid and No Rebound tenderness present Auscultation: normoactive bowel sounds General: Yes no CVA tenderness Back/Spine/Pelvis Back: no CVA tenderness Skin General skin exam: elasticity normal and turgor normal Neuro General: oriented to person, oriented to place, oriented to time, patient oriented x3, moves all extremities, no focal motor deficits and CN's II-XI intact bilaterally Cranial nerves: Yes Equal, round and reactive pupils present Cognition (Neuro): normal cognition Extrem General: Yes full ROM, Yes no pedal edema and Yes no calf tenderness Psych Mental Status: mental status grossly normal Affect: normal affect Thought process: Normal thought process present Course Course Course Narrative: This is an RME: Additional HPI, ROS, PE not included below will be deferred to primary provider. This is a 9-[id number]-male, with a history of fatty liver, asthma, and GERD (has been seen 3 times recently), complaining with complaints of right-sided abdominal pain for the last week. He was seen on January 25, 2023. He does not have a primary care physician and therefore he cannot follow-up with the GI specialist. Decreased appetite secondary to his symptoms. He had a cholecystectomy. Mildly tender in the epigastrium and right upper quadrant Plan: Labs, UA, further ER evaluation needed. Medical Decision Making Medical Decision Making MDM Narrative: Patient is a 22-year-old Faroese-speaking male with history of cholecystectomy, GERD presenting to the emergency department with complaint of 2 weeks of epigastric and right upper quadrant abdominal pain. On exam patient is awake, A+Ox3, VS WNL, afebrile, normal neurological exam without focal deficits, physical exam findings as above. Given reported symptoms and physical exam findings, initial differential includes GERD, PUD, choledocolithiasis. Patient has not had any imaging for this complaint, will obtain RUQ U/S. Discussed with patient the importance of taking his medications daily as prescribed and not p.r.n.. Also stressed the importance of continuing to work towards finding a primary care provider so that he is able to be referred to GI. Labs notable for no leukocytosis, no anemia, no REID Pamela normal LFTs and alk-phos, bilirubin. No evidence of infection on UA. Ultrasound notable for no acute abnormalities. My interpretation is in agreement with the radiologist's interpretation. Feel patient is stable for discharge home. Patient provided with resources for finding PCP. REturn precautions discussed at bedside. Patient verbalized understanding of and agreement with plan. Differential Diagnosis Differential Diagnoses: The differential diagnosis associated with the presentation includes As per [facility]. Admission/Observation Consideration of admission/observation: Escalation of care including admission/observation considered Lab Data [facility] Lab Attestation statement: I reviewed the patient's lab results. As per MDM. 01/28/23 15:46 01/28/23 15:46 Labs: Lab Results 01/28/23 01/28/23 Range/Units 15:46 20:40 WBC 9.0 (4.8-10.8) X10*3/uL RBC 5.23 (4.60-5.80) X10*6/uL Hgb 14.4 (14.0-18.0) g/dl Hct 42.8 (42.0-52.0) % MCV 81.8 (80.0-98.0) fL MCH 27.5 (27.0-33.0) pg MCHC 33.6 (31.0-36.0) g/dl RDW 13.4 (11.0-16.0) % Plt Count 331 (160-400) X10*3/uL MPV 9.2 L (9.4-12.4) fL Immature Gran % (Auto) 0.3 (0.0-0.4) % Neut % (Auto) 74.1 H (45-73) % Lymph % (Auto) 17.5 L (20-40) % Slope % (Auto) 5.8 (2-11) % Eos % (Auto) 1.6 (0-4) % Baso % (Auto) 0.7 (0-2) % Lymph # (Auto) 1.6 (1.2-4.9) X10*3/uL Slope # (Auto) 0.5 (0.1-1.2) X10*3/uL Eos # (Auto) 0.1 (0.0-0.4) X10*3/uL Baso # (Auto) 0.1 (0.0-0.2) X10*3/uL Abs Immat Gran (auto) 0.03 (0.00-0.03) X10*3/uL Absolute Neuts (auto) 6.7 (2.0-8.3) x10*3/uL Absolute Nucleated RBC 0.000 (0.0-0.012) X10*3/uL Nucleated RBC % (auto) 0.0 (0.0-0.2) /100WBC Sodium 138 (135-145) mmol/L Potassium 3.8 (3.3-5.1) mmol/L Chloride 106 (96-108) mmol/L Carbon Dioxide 24 (22-29) mmol/L Anion Gap 12 (12-20) BUN 8 L (9-16) mg/dL Creatinine 0.83 (0.5-1.4) mg/dL Estim Creat Clear Calc 138.5 Estimated GFR > 60 Random Glucose 85 (60-115) mg/dL Calcium 9.9 (8.4-10.2) mg/dL Total Bilirubin 0.9 (0.0-1.0) mg/dL Direct Bilirubin 0.3 (0.0-0.5) mg/dL AST 20 (5-37) U/L ALT 25 (0-40) U/L Alkaline Phosphatase 77 (39-117) U/L Total Protein 8.3 H (6.5-8.0) g/dL Albumin 4.7 (3.5-5.0) g/dL Lipase 13 (8-78) U/L Urine Color Yellow Urine Appearance Clear Urine pH 6.0 (5.0-9.0) Ur Specific [place] <= 1.005 (1.005-1.025) Urine Protein Negative (Neg-Trace) mg/dL Urine Glucose (UA) Negative (Negative) mg/dL Urine Ketones 80 (Negative) mg/dL Urine Blood Negative (Negative) Urine Nitrite Negative (Negative) Ur Leukocyte Esterase Negative (Negative) Independent Interpretation I performed an independent interpretation of an: Ultrasound Radiology Impression Discussion of test interpretation with radiology: I have reviewed the radiologist's reading. Radiologist Impression: US/US abdomen limited IMPRESSION: 1. Very limited examination secondary to shadowing from overlying bowel gas and body habitus. 2. No acute sonographic abnormalities. External Record Review External record reviewed: Inpatient record, Office record and Outpatient record Discharge Plan Discharge Clinical Impression: Abdominal pain Patient Disposition: Home, Self-Care Instructions: Abdominal Pain (ED) Additional Instructions: Usted kuo sido evaluado en el departamento de emergencias hoy por dolor abdominal. Mccray evaluaci?n no mostr? evidencia de condiciones m?dicas que requieran deborah intervenci?n de emergencia en emanuel momento. Es muy importante que establezca atenci?n con un m?dico de atenci?n primaria, utilice los recursos que se le brindan en el departamento de emergencia. Regrese al departamento de emergencias si experimenta dolor que empeora o no controla, fiebre de 100.4 ?F o m?s, v?mitos recurrentes, incapacidad para tolerar alimentos o l?quidos por v?a oral, heces o v?mitos con briana, heces negras o alquitranadas o cualquier otro s?ntoma preocupante. Contin?e tomando los medicamentos recetados seg?n las indicaciones. Prescriptions: No Action prednisone 20 mg tablet 60 mg PO DAILY 5 Days Qty: 15 0RF albuterol sulfate [ProAir HFA] 90 mcg/actuation HFA aerosol inhaler 2 puff inhalation Q4-6H PRN (Reason: shortness of breath or wheezing) Qty: 8.5 0RF doxycycline hyclate 100 mg tablet 100 mg PO Q12H 7 Days Qty: 14 0RF acetaminophen [Tylenol Extra Strength] 500 mg tablet 1,000 mg PO Q6H PRN (Reason: fever or pain) Qty: 20 0RF doxycycline hyclate 100 mg capsule 100 mg PO BID 10 Days Qty: 20 0RF prednisone 20 mg tablet 20 mg PO DAILY 5 Days Qty: 5 0RF albuterol sulfate 90 mcg/actuation aerosol powdr breath activated 2 inh inhalation Q4-6H PRN (Reason: shortness of breath or wheezing) Qty: 1 0RF omeprazole 20 mg capsule,delayed release(DR/EC) 20 mg PO DAILY Qty: 30 0RF prednisone 20 mg tablet 40 mg PO DAILY Qty: 10 0RF famotidine [Pepcid] 20 mg tablet 20 mg PO BID 5 Days Qty: 10 0RF diphenhydramine HCl [Benadryl] 25 mg capsule 25 mg PO Q8H 5 Days Qty: 15 0RF epinephrine [EpiPen] 0.3 mg/0.3 mL auto-injector 0.3 mg IM ONCE PRN (Reason: extreme reaction) Qty: 1 0RF Rx Instructions: for 2 doses meclizine 25 mg tablet 25 mg PO TID PRN (Reason: dizziness) Qty: 20 0RF ondansetron 4 mg tablet,disintegrating 4 mg PO Q8H PRN (Reason: nausea and vomiting) Qty: 20 0RF Referrals: [facility] [Provider Group] Stand Alone Forms: Work/School Release Print Language: Faroese
[2023-01-28 14:09] VITALS: BP 132/79; PULSE 77; RESP 18; TEMP 36.6; O2SAT 98; BMI 31.6
[2023-01-28 15:50] LABS: MANUAL DIFF FLAG NO
[2023-01-28 15:54] LABS: Basophils Absolute Auto 0.1 X10*3/uL (0.0-0.2); Basophils Percent Auto 0.7 % (0-2); Eosinophils Absolute Auto 0.1 X10*3/uL (0.0-0.4); Eosinophils Percent Auto 1.6 % (0-4); Hematocrit 42.8 % (42.0-52.0); Hemoglobin 14.4 g/dl (14.0-18.0); Imm Gran Abs Auto 0.03 X10*3/uL (0.00-0.03); Imm Gran Pct Auto 0.3 % (0.0-0.4); Lymphocytes Absolute Auto 1.6 X10*3/uL (1.2-4.9); Lymphocytes Percent Auto 17.5 % (20-40); Mean Corpuscular HGB Conc 33.6 g/dl (31.0-36.0); Mean Corpuscular Hemoglobin 27.5 pg (27.0-33.0); Mean Corpuscular Volume 81.8 fL (80.0-98.0); Mean Platelet Volume 9.2 fL (9.4-12.4); Monocytes Absolute Auto 0.5 X10*3/uL (0.1-1.2); Monocytes Percent Auto 5.8 % (2-11); Neutrophils Absolute Auto 6.7 x10*3/uL (2.0-8.3); Neutrophils Percent Auto 74.1 % (45-73); Platelet Count 331 X10*3/uL (160-400); Red Blood Count 5.23 X10*6/uL (4.60-5.80); Red Cell Distribution Width 13.4 % (11.0-16.0)
[2023-01-28 16:05] LABS: Alanine Aminotransferase 25 U/L (0-40); Albumin Level 4.7 g/dL (3.5-5.0); Alkaline Phosphatase 77 U/L (39-117); Anion Gap 12 (12-20); Aspartate Amino Transferase 20 U/L (5-37); Bilirubin Direct 0.3 mg/dL (0.0-0.5); Bilirubin Total 0.9 mg/dL (0.0-1.0); Blood Urea Nitrogen 8 mg/dL (9-16); Calcium 9.9 mg/dL (8.4-10.2); Carbon Dioxide 24 mmol/L (22-29); Chloride 106 mmol/L (96-108); Creatinine Clr Calc Pharmacy 138.5; Estimated Glomerular Filt Rate > 60; Glucose Random 85 mg/dL (60-115); Lipase 13 U/L (8-78); Potassium 3.8 mmol/L (3.3-5.1); Sodium 138 mmol/L (135-145); Total Protein 8.3 g/dL (6.5-8.0)
[2023-01-28 20:35] VITALS: BP 119/79; PULSE 84; RESP 16; TEMP 36.8; O2SAT 98
[2023-01-28 21:00] LABS: Appearance Urine Clear; Color Urine Yellow; Glucose Urine UA Negative (Negative); Leukocyte Esterase Urine Negative (Negative); Nitrite Urine Negative (Negative); Specific Gravity - Urine <= 1.005 (1.005-1.025); Urine Blood Negative (Negative); Urine Ketones 80 mg/dL (Negative); Urine Protein Negative (Neg-Trace)
[2023-01-28 21:58] VITALS: BP 114/58; PULSE 78; RESP 16; TEMP 36.3; O2SAT 97
[2023-01-29] VITALS: BP 128/71; PULSE 79; RESP 16; TEMP 36.8; O2SAT 97
== END 2023-01-29 00:20 | disposition home or self-care (01) ==
PROVIDERS: Physician Assistant Medical; Emergency Provider Student in an Organized Health Care Education/Training Program
DX: R10.11 Right upper quadrant pain (principal); R10.13 Epigastric pain
CPT/HCPCS: 36415; 76705; 80048; 80076; 81003; 83690; 85025; 99283; 99284

== ENCOUNTER 2023-02-03 19:31 | Emergency (ER) | payer MEDICAID, SELFPAY ==
[2023-02-03 19:45] VITALS: BP 130/75; PULSE 85; RESP 18; TEMP 36.9; O2SAT 99; BMI 32.2
--- NOTE | 2023-02-03 19:45 | ED.GENADULT ---
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 The patient was seen in the emergency department on 01/25/2023 and 01/28/2023 for 2 weeks of epigastric and right upper quadrant pain. He states that he was started on omeprazole and a probiotic. He states that over the past 2 days he has noticed a rash on his arms, neck and abdomen which is pruritic. He also states that he has a sensation as if something stuck in the back of his throat is unable to swallow. He denied fever, chills, chest pain, shortness of breath, lightheadedness, dizziness, nausea or vomiting. He did take liquid Benadryl but this did not help his symptoms. He states he stopped his omeprazole and he believes that his pruritus is improved but is still present. Related Data Previous Rx's Medication Instructions Recorded acetaminophen 500 mg tablet 1,000 mg (2 x 500 mg) PO Q6H PRN 09/29/22 (Tylenol Extra Strength) fever or pain #20 tabs albuterol sulfate 90 mcg/actuation 2 puff inhalation Q4-6H PRN 09/29/22 aerosol inhaler (ProAir HFA) shortness of breath or wheezing #8.5 grams doxycycline hyclate 100 mg tablet 100 mg PO Q12H 7 days #14 tabs 09/29/22 prednisone 20 mg tablet 60 mg (3 x 20 mg) PO DAILY 5 days 09/29/22 #15 tabs albuterol sulfate 90 mcg/actuation 2 inh inhalation Q4-6H PRN 10/14/22 breath activated powder inhaler shortness of breath or wheezing #1 ea doxycycline hyclate 100 mg capsule 100 mg PO BID 10 days #20 caps 10/14/22 prednisone 20 mg tablet 20 mg PO DAILY 5 days #5 tabs 10/14/22 diphenhydramine HCl 25 mg capsule 25 mg PO Q8H 5 days #15 caps 01/11/23 (Benadryl) epinephrine 0.3 mg/0.3 mL 0.3 mg (0.3 mL) IM ONCE PRN 01/11/23 injection, auto-injector (EpiPen) extreme reaction #1 ea famotidine 20 mg tablet (Pepcid) 20 mg PO BID 5 days #10 tabs 01/11/23 prednisone 20 mg tablet 40 mg (2 x 20 mg) PO DAILY #10 tabs 01/11/23 meclizine 25 mg tablet 25 mg PO TID PRN dizziness #20 tabs 01/15/23 omeprazole 20 mg capsule,delayed 20 mg PO DAILY #30 caps 01/21/23 release ondansetron 4 mg disintegrating 4 mg PO Q8H PRN nausea and 01/26/23 tablet vomiting #20 tabs diphenhydramine HCl 25 mg capsule 50 mg (2 x 25 mg) PO Q6H PRN rash 02/03/23 #20 caps famotidine 20 mg tablet 20 mg PO DAILY #30 tabs 02/03/23 prednisone 20 mg tablet 60 mg (3 x 20 mg) PO DAILY 5 days 02/03/23 #15 tabs Allergies Allergy/AdvReac Type Severity Reaction Status Date / Time ibuprofen [From Advil] Allergy Swelling Verified 02/03/23 19:50 Review of Systems Review of Systems: Yes all other systems are reviewed and are negative [facility] Past Medical History [facility] Narrative: Social history: He denies tobacco use. Occasionally drinks alcohol. He denies drug use. Medical History Fatty liver Asthma Surgical History S/P cholecystectomy Social History Social History Alcohol intake: never Advance Directives: No Advance Directives Information Provided: No Physical Exam ED Vital Signs: Vital Signs - 24 hr 02/03/23 19:45 Temperature 98.4 F Pulse Rate 85 Respiratory Rate 18 Blood Pressure 130/75 Pulse Oximetry 99 Oxygen Delivery Method Room Air BMI result Body Mass Index 32.2 Vital signs were normal Exam: General: Awake, alert in no distress Head: Normocephalic, atraumatic EENT: PERRL, Lids normal, sclera normal, conjunctiva normal, nose normal , ears normal, throat without erythema or exudates Neck: Supple, no adenopathy, no trachea midline or C-spine tenderness Lung: breath sounds symmetric, no wheezing, rales or rhonchi Chest: symmetric movement, nontender Heart: regular rate and rhythm, normal S1, S2 no murmurs or rubs Abdomen: soft, moderate epigastric tenderness r, nondistended, normal bowel sounds Back: no vertebral tenderness, no CVAT Extremities: no deformities, moves all extremities symmetrically Skin: Urticarial rash on his neck, arms and abdomen, blanches with pressure Neuro: Awake, alert, oriented, normal speech, moves all extremities symmetrically Psych: Pleasant, cooperative Course Course Course Narrative: RME: 22yo M w/no sig PMHx c/o itchy rash to bilateral upper extremities and lower abdomen/suprapubic region x5 days. Also reports difficulty swelling. Admits to symptoms starting after taking omeprazole. Denies other new exposures Erythematous rash noted to left antecubital area extending to axilla, + rash to right axilla, & fungal looking rash to suprapubic region - difficult to assess in triage Talking in complete sentences. No evidence of anaphylaxis Full HPI, ROS and PE to be performed by primary ED provider. Medical Decision Making Medical Decision Making [facility] Narrative: 22-year-old male with a history of asthma, GERD, cholecystectomy who presents emergency department for evaluation of a pruritic rash x2 days, epigastric pain and sensation of something stuck in the back of his throat that is unable to swallow. Patient was seen recently for abdominal pain here in the emergency department and started on omeprazole and a probiotic. Patient's vital signs were normal. Exam did reveal epigastric tenderness and an urticarial rash. Patient's presentation is consistent with allergic reaction possibly caused by omeprazole with a probiotic that he was recently started on. He was advised to stop these medications. Patient was treated with prednisone 60 mg once a day for 5 days, Benadryl 50 mg 4 times a day as needed for pruritus and rash, and Pepcid 20 mg x1 month. He was given printed and verbal instructions and discharged home. Differential Diagnosis Differential Diagnoses: The differential diagnosis associated with the presentation includes Differential diagnosis includes but is not limited to viral syndrome, allergic reaction, gastritis, globus, GERD External Record Review External record reviewed: Other (ED records reviewed) Prescription Management I considered prescription management with: Other (Prednisone, Pepcid, Benadryl) Chronic Conditions Patient?s care impacted by: Other (Asthma) Discharge Plan Discharge Clinical Impression: Globus sensation Allergic reaction Qualifiers: Encounter type: initial encounter Qualified Code(s): T78.40XA - Allergy, unspecified, initial encounter Gastritis Qualifiers: Gastritis type: unspecified gastritis Chronicity: acute Gastritis bleeding: without bleeding Qualified Code(s): K29.00 - Acute gastritis without bleeding Patient Disposition: Home, Self-Care Instructions: Gastritis (ED), General Allergic Reaction (ED) Additional Instructions: Your rash is consistent with an allergic reaction most likely caused by the omeprazole and your probiotic. Do not take these medications again in the future. Take Benadryl (diphenhydramine) 25 mg pills, 2 pills 4 times a day for the next 2-3 days to help reduce the swelling and itchiness in the area of your rash. This medication will make you sleepy. Do not drive or work while taking this medication. Take prednisone 20 mg pills, 3 pills once a day for 5 days. While you are taking prednisone, do not take any NSAIDs (Motrin, Advil, ibuprofen, Aleve, naproxen). Take Pepcid (famotidine) 20 mg pills, 1 pill once a day for 4 weeks. This medication reduces the amount of acid that your stomach produces and will help the inflammation in your stomach heal. This medication also helps with allergic reactions. Follow-up with your doctor in 2 days. Please return to the emergency department if your symptoms get worse or if you develop any symptoms that are concerning to you. Prescriptions: New diphenhydramine HCl 25 mg capsule 50 mg PO Q6H PRN (Reason: rash) Qty: 20 0RF prednisone 20 mg tablet 60 mg PO DAILY 5 Days Qty: 15 0RF famotidine 20 mg tablet 20 mg PO DAILY Qty: 30 0RF No Action prednisone 20 mg tablet 60 mg PO DAILY 5 Days Qty: 15 0RF albuterol sulfate [ProAir HFA] 90 mcg/actuation HFA aerosol inhaler 2 puff inhalation Q4-6H PRN (Reason: shortness of breath or wheezing) Qty: 8.5 0RF doxycycline hyclate 100 mg tablet 100 mg PO Q12H 7 Days Qty: 14 0RF acetaminophen [Tylenol Extra Strength] 500 mg tablet 1,000 mg PO Q6H PRN (Reason: fever or pain) Qty: 20 0RF doxycycline hyclate 100 mg capsule 100 mg PO BID 10 Days Qty: 20 0RF prednisone 20 mg tablet 20 mg PO DAILY 5 Days Qty: 5 0RF albuterol sulfate 90 mcg/actuation aerosol powdr breath activated 2 inh inhalation Q4-6H PRN (Reason: shortness of breath or wheezing) Qty: 1 0RF omeprazole 20 mg capsule,delayed release(DR/EC) 20 mg PO DAILY Qty: 30 0RF prednisone 20 mg tablet 40 mg PO DAILY Qty: 10 0RF famotidine [Pepcid] 20 mg tablet 20 mg PO BID 5 Days Qty: 10 0RF diphenhydramine HCl [Benadryl] 25 mg capsule 25 mg PO Q8H 5 Days Qty: 15 0RF epinephrine [EpiPen] 0.3 mg/0.3 mL auto-injector 0.3 mg IM ONCE PRN (Reason: extreme reaction) Qty: 1 0RF Rx Instructions: for 2 doses meclizine 25 mg tablet 25 mg PO TID PRN (Reason: dizziness) Qty: 20 0RF ondansetron 4 mg tablet,disintegrating 4 mg PO Q8H PRN (Reason: nausea and vomiting) Qty: 20 0RF
[2023-02-03 21:50] VITALS: BP 128/66; PULSE 66; RESP 16; TEMP 36.8; O2SAT 94
== END 2023-02-03 22:25 | disposition home or self-care (01) ==
PROVIDERS: Emergency Provider Emergency Medicine Emergency Medical Services
DX: K29.00 Acute gastritis without bleeding (principal); R09.A2 Foreign body sensation, throat; R21 Rash and other nonspecific skin eruption; T78.40XA Allergy, unspecified, initial encounter; X58.XXXA Exposure to other specified factors, initial encounter; J45.909 Unspecified asthma, uncomplicated
CPT/HCPCS: 99283; 99284

== ENCOUNTER 2023-02-09 15:30 | Emergency (ER) | payer MEDICAID, SELFPAY ==
--- NOTE | ~2023-02-09 | XR_ITS ---
EXAMINATION: XR ABDOMEN KUB CLINICAL INDICATION: Pain COMPARISON: None available. TECHNIQUE: AP view of the abdomen. FINDINGS: Cholecystectomy clips. Mildly prominent small bowel loop left midabdomen. No dilated air-fluid levels loops of bowel. Solid visceral outlines within normal limits. Lung bases are clear. Bony structures are intact. XR/XR KUB IMPRESSION: Nonspecific bowel pattern.
--- NOTE | ~2023-02-09 | CT_ITS ---
EXAMINATION: CT ABDOMEN AND PELVIS WITH CONTRAST CLINICAL INFORMATION: Rectal bleeding COMPARISON: None available. TECHNIQUE: Multidetector volumetric images were obtained from the superior aspect of the liver through the pubic symphysis following administration 85 mL of Omnipaque 350 intravenous contrast. Sagittal and coronal reformatted images were obtained on the technologist's workstation. Oral contrast: No This CT examination was performed using dose optimization techniques as appropriate, variously including the following: *Automated exposure control *Adjustment of mA and/or kV according to patient size (this includes techniques or standardized protocols for targeted exams where dose is matched to indication/reason for exam; i.e. extremities or head) *Use of iterative reconstruction technique DLP: 605 mGy-cm FINDINGS: LUNG BASES: The visualized lung bases are unremarkable. LIVER, GALLBLADDER, AND BILIARY TREE: The liver is normal in size, shape, and attenuation. No focal hepatic lesion or biliary ductal dilatation is present. Status post cholecystectomy. PANCREAS: Unremarkable. SPLEEN: Unremarkable. ADRENAL GLANDS: Unremarkable. KIDNEYS AND URETERS: The kidneys are normal in size, shape, and attenuation. No hydronephrosis, hydroureter, or calculi seen. No perinephric stranding. BLADDER: Unremarkable. GASTROINTESTINAL TRACT: The small and large bowel are unremarkable aside from a few scattered colonic diverticula. The appendix is unremarkable. ABDOMINAL WALL: No significant hernia is appreciated. LYMPH NODES: Normal. VASCULAR: Unremarkable. PELVIC VISCERA: The prostate and seminal vesicles are unremarkable. OSSEOUS STRUCTURES: Unremarkable. CT/CT abdomen pelvis w IV con IMPRESSION: A cause for the patient's rectal bleeding has not been found. Fleischner guidelines were followed.
[2023-02-09 15:50] VITALS: BP 117/63; PULSE 84; RESP 20; TEMP 36.8; O2SAT 100; BMI 31.8
--- NOTE | 2023-02-09 15:51 | ED.GENADULT ---
HPI - General Adult General Chief complaint: GI Bleed Stated complaint: bleeding when using bathroom Time Seen by Provider: 02/09/23 19:21 Source: patient Mode of arrival: ambulatory Limitations: no limitations History of Present Illness HPI narrative: Patient comes to the emergency room complaining of rectal bleeding for 2 days. Patient states that he has soft bowel movements, no constipation, dates that he had 2 bowel movements, denies abdominal pain, fever or chills. Patient states that he has not history of hemorrhoids. Patient has had episodes of rectal bleeding in the past which self-resolved. Denies fatigue shortness of breath chest pain , dizziness or syncope. Related Data Previous Rx's Medication Instructions Recorded acetaminophen 500 mg tablet 1,000 mg (2 x 500 mg) PO Q6H PRN 09/29/22 (Tylenol Extra Strength) fever or pain #20 tabs albuterol sulfate 90 mcg/actuation 2 puff inhalation Q4-6H PRN 09/29/22 aerosol inhaler (ProAir HFA) shortness of breath or wheezing #8.5 grams doxycycline hyclate 100 mg tablet 100 mg PO Q12H 7 days #14 tabs 09/29/22 prednisone 20 mg tablet 60 mg (3 x 20 mg) PO DAILY 5 days 09/29/22 #15 tabs albuterol sulfate 90 mcg/actuation 2 inh inhalation Q4-6H PRN 10/14/22 breath activated powder inhaler shortness of breath or wheezing #1 ea doxycycline hyclate 100 mg capsule 100 mg PO BID 10 days #20 caps 10/14/22 prednisone 20 mg tablet 20 mg PO DAILY 5 days #5 tabs 10/14/22 diphenhydramine HCl 25 mg capsule 25 mg PO Q8H 5 days #15 caps 01/11/23 (Benadryl) epinephrine 0.3 mg/0.3 mL 0.3 mg (0.3 mL) IM ONCE PRN 01/11/23 injection, auto-injector (EpiPen) extreme reaction #1 ea famotidine 20 mg tablet (Pepcid) 20 mg PO BID 5 days #10 tabs 01/11/23 prednisone 20 mg tablet 40 mg (2 x 20 mg) PO DAILY #10 tabs 01/11/23 meclizine 25 mg tablet 25 mg PO TID PRN dizziness #20 tabs 01/15/23 omeprazole 20 mg capsule,delayed 20 mg PO DAILY #30 caps 01/21/23 release ondansetron 4 mg disintegrating 4 mg PO Q8H PRN nausea and 01/26/23 tablet vomiting #20 tabs diphenhydramine HCl 25 mg capsule 50 mg (2 x 25 mg) PO Q6H PRN rash 02/03/23 #20 caps famotidine 20 mg tablet 20 mg PO DAILY #30 tabs 02/03/23 prednisone 20 mg tablet 60 mg (3 x 20 mg) PO DAILY 5 days 02/03/23 #15 tabs Allergies Allergy/AdvReac Type Severity Reaction Status Date / Time ibuprofen [From Advil] Allergy Swelling Verified 02/03/23 19:50 omeprazole Allergy Rash Verified 02/09/23 15:48 Review of Systems Review of Systems: Constitutional : No Weight loss, No Fever, No Chills, No Night Sweats, No Fatigue, No Malaise ENT/Mouth : No Hearing loss, No Ear Pain, No Nasal Congestion, No Sinus Pain, No Hoarseness, No sore throat, No Rhinorrhea, No Swallowing Difficulty Eyes: No Eye Pain, No Swelling, No Redness, No Foreign Body, No Discharge, No Vision Changes Cardiovascular : No Chest Pain, No SOB, No Dyspnea on Exertion, No Orthopnea, No Edema, No Palpitations Respiratory : No Cough, No Sputum, No Wheezing, No Smoke Exposure, No Dyspnea Gastrointestinal : No Nausea, No Vomiting, No Diarrhea, No Constipation, No abdominal Pain, complaining of rectal bleeding mixed with stool Genitourinary : no irregular bleeding, No Dysuria, No Urinary Frequency, No Hematuria, No Urinary Incontinence, No Urgency, No Flank Pain, No Urinary Flow Changes, No Hesitancy Musculoskeletal : No joint pain, No Myalgias, No Joint Swelling Skin : No Skin Lesions, No rash Neuro : No Weakness, No Numbness, No Paresthesias, No Loss of Consciousness, No Dizziness, No Headache Psych : No Anxiety/Panic, No Depression, No SI/HI/AH/VH, No Social Issues, Heme/Lymph: No Bruising, No Bleeding,No Lymphadenopathy Endocrine : No Polyuria, No Polydipsia, No Temperature Intolerance PMFSH Past Medical History Medical History Fatty liver Asthma Surgical History S/P cholecystectomy Social History Social History Alcohol intake: never Advance Directives: No Advance Directives Information Provided: No Physical Exam ED Vital Signs: Vital Signs - 24 hr 02/09/23 15:50 02/09/23 19:07 02/09/23 22:12 Temperature 98.2 F 98.6 F 98.6 F Pulse Rate 84 66 69 Respiratory Rate 20 18 18 Blood Pressure 117/63 119/61 108/54 L Pulse Oximetry 100 96 98 Oxygen Delivery Method Room Air Room Air Room Air BMI result Body Mass Index 31.8 Const Other: Appearance: Alert. Oriented X3. No acute distress. Eyes: Pupils equal, round and reactive to light. ENT: Pharynx normal. Neck: Normal inspection. Neck supple. No lymph nodes noted. No crepitus CVS: Normal heart rate and rhythm. Pulses normal. Normal S1 and S2 Respiratory: No respiratory distress. Breath sounds normal. No Wheezing. No rales Abdomen: Soft and nontender. No rigidity. No distention. Brown stool on digital rectal exam, no palpable hemorrhoid Skin: Skin warm and dry. Normal skin color. Normal skin turgor. Extremities: No lower extremity edema. No Lacerations. No Rash Neuro: Oriented X 3. No motor deficit. No sensory deficit. Moving all extremities. No slurred speech. CN 2 through 12 grossly intact Psych: calm, cooperative, normal affect Course Course Course Narrative: RME- 22 year old male presents fore valuation of left lower abdominal pain and bloody stool. Denies known history of hemorrhoids. Plan for labs, KUB Medications Administered Discontinued Medications Generic Name Dose Route Start Last Admin Trade Name Freq PRN Reason Stop Dose Admin Iohexol 100 ml 02/09/23 21:21 02/09/23 21:22 Iohexol 350 Mg/Ml 100 Ml Infus..Btl IV 02/09/23 21:22 85 ml ONCE ONE Administration Medical Decision Making Medical Decision Making [facility] Narrative: -patient's hematology and chemistry within normal limits, -occult stool test: Negative -CT scan of the abdomen my interpretation: No obvious abnormality -is possible the patient may have an internal hemorrhoid. At this time, no active bleeding. Hemoglobin stable. -discussed with the patient that if he continues having rectal bleeding, he may be a good candidate for a colonoscopy despite his young age. Differential Diagnosis Differential Diagnoses: The differential diagnosis associated with the presentation includes (Infectious Colitis, ulcerative colitis, internal hemorrhoid, anal fissure) Admission/Observation Consideration of admission/observation: Escalation of care including admission/observation considered (Given patient's history on arrival, admission was considered) Lab Data MDM Lab Attestation statement: I reviewed the patient's lab results. 02/09/23 17:33 02/09/23 17:33 Labs: Lab Results 02/09/23 02/09/23 Range/Units 17:33 19:35 WBC 6.4 (4.8-10.8) X10*3/uL RBC 5.11 (4.60-5.80) X10*6/uL Hgb 14.4 (14.0-18.0) g/dl Hct 42.6 (42.0-52.0) % MCV 83.4 (80.0-98.0) fL MCH 28.2 (27.0-33.0) pg MCHC 33.8 (31.0-36.0) g/dl RDW 13.4 (11.0-16.0) % Plt Count 336 (160-400) X10*3/uL MPV 10.2 (9.4-12.4) fL Immature Gran % (Auto) 0.5 H (0.0-0.4) % Neut % (Auto) 63.8 (45-73) % Lymph % (Auto) 24.9 (20-40) % Norman % (Auto) 6.2 (2-11) % Eos % (Auto) 3.0 (0-4) % Baso % (Auto) 1.6 (0-2) % Lymph # (Auto) 1.6 (1.2-4.9) X10*3/uL Norman # (Auto) 0.4 (0.1-1.2) X10*3/uL Eos # (Auto) 0.2 (0.0-0.4) X10*3/uL Baso # (Auto) 0.1 (0.0-0.2) X10*3/uL Abs Immat Gran (auto) 0.03 (0.00-0.03) X10*3/uL Absolute Neuts (auto) 4.1 (2.0-8.3) x10*3/uL Absolute Nucleated RBC 0.000 (0.0-0.012) X10*3/uL Nucleated RBC % (auto) 0.0 (0.0-0.2) /100WBC Sodium 141 (135-145) mmol/L Potassium 4.0 (3.3-5.1) mmol/L Chloride 108 (96-108) mmol/L Carbon Dioxide 24 (22-29) mmol/L Anion Gap 13 (12-20) BUN 7 L (9-16) mg/dL Creatinine 0.76 (0.5-1.4) mg/dL Estim Creat Clear Calc 151.6 Estimated GFR > 60 Random Glucose 93 (60-115) mg/dL Calcium 10.1 (8.4-10.2) mg/dL Stool Occult Blood NEGATIVE (NEGATIVE) Independent Interpretation I performed an independent interpretation of an: CT Scan Radiology Impression Discussion of test interpretation with radiology: I have reviewed the radiologist's reading. Radiologist Impression: FINDINGS: LUNG BASES: The visualized lung bases are unremarkable. LIVER, GALLBLADDER, AND BILIARY TREE: The liver is normal in size, shape, and attenuation. No focal hepatic lesion or biliary ductal dilatation is present. Status post cholecystectomy. PANCREAS: Unremarkable. SPLEEN: Unremarkable. ADRENAL GLANDS: Unremarkable. KIDNEYS AND URETERS: The kidneys are normal in size, shape, and attenuation. No hydronephrosis, hydroureter, or calculi seen. No perinephric stranding. BLADDER: Unremarkable. GASTROINTESTINAL TRACT: The small and large bowel are unremarkable aside from a few scattered colonic diverticula. The appendix is unremarkable. ABDOMINAL WALL: No significant hernia is appreciated. LYMPH NODES: Normal. VASCULAR: Unremarkable. PELVIC VISCERA: The prostate and seminal vesicles are unremarkable. OSSEOUS STRUCTURES: Unremarkable. CT/CT abdomen pelvis w IV con IMPRESSION: A cause for the patient's rectal bleeding has not been found. Fleischner guidelines were followed. Critical Care Time Critical Care Time Critical Care Time: Yes Total Critical Care Time: 30 Attestation: I have personally provided critical care time. Time includes review of lab data, radiology results, discussion with consultants, and monitoring for potential decompensation. Intervention performed as documented. Discharge Plan Discharge Clinical Impression: GI bleed Patient Disposition: Home, Self-Care Instructions: Rectal Bleeding (ED) Additional Instructions: Please follow-up with your primary care physician tomorrow. If you have any worsening or new symptoms, please return to the emergency room or call 911 Prescriptions: No Action prednisone 20 mg tablet 60 mg PO DAILY 5 Days Qty: 15 0RF albuterol sulfate [ProAir HFA] 90 mcg/actuation HFA aerosol inhaler 2 puff inhalation Q4-6H PRN (Reason: shortness of breath or wheezing) Qty: 8.5 0RF doxycycline hyclate 100 mg tablet 100 mg PO Q12H 7 Days Qty: 14 0RF acetaminophen [Tylenol Extra Strength] 500 mg tablet 1,000 mg PO Q6H PRN (Reason: fever or pain) Qty: 20 0RF doxycycline hyclate 100 mg capsule 100 mg PO BID 10 Days Qty: 20 0RF prednisone 20 mg tablet 20 mg PO DAILY 5 Days Qty: 5 0RF albuterol sulfate 90 mcg/actuation aerosol powdr breath activated 2 inh inhalation Q4-6H PRN (Reason: shortness of breath or wheezing) Qty: 1 0RF omeprazole 20 mg capsule,delayed release(DR/EC) 20 mg PO DAILY Qty: 30 0RF prednisone 20 mg tablet 40 mg PO DAILY Qty: 10 0RF famotidine [Pepcid] 20 mg tablet 20 mg PO BID 5 Days Qty: 10 0RF diphenhydramine HCl [Benadryl] 25 mg capsule 25 mg PO Q8H 5 Days Qty: 15 0RF epinephrine [EpiPen] 0.3 mg/0.3 mL auto-injector 0.3 mg IM ONCE PRN (Reason: extreme reaction) Qty: 1 0RF Rx Instructions: for 2 doses meclizine 25 mg tablet 25 mg PO TID PRN (Reason: dizziness) Qty: 20 0RF ondansetron 4 mg tablet,disintegrating 4 mg PO Q8H PRN (Reason: nausea and vomiting) Qty: 20 0RF diphenhydramine HCl 25 mg capsule 50 mg PO Q6H PRN (Reason: rash) Qty: 20 0RF prednisone 20 mg tablet 60 mg PO DAILY 5 Days Qty: 15 0RF famotidine 20 mg tablet 20 mg PO DAILY Qty: 30 0RF
[2023-02-09 17:42] LABS: MANUAL DIFF FLAG NO
[2023-02-09 17:47] LABS: Basophils Absolute Auto 0.1 X10*3/uL (0.0-0.2); Basophils Percent Auto 1.6 % (0-2); Eosinophils Absolute Auto 0.2 X10*3/uL (0.0-0.4); Hematocrit 42.6 % (42.0-52.0); Hemoglobin 14.4 g/dl (14.0-18.0); Imm Gran Abs Auto 0.03 X10*3/uL (0.00-0.03); Imm Gran Pct Auto 0.5 % (0.0-0.4); Lymphocytes Absolute Auto 1.6 X10*3/uL (1.2-4.9); Lymphocytes Percent Auto 24.9 % (20-40); Mean Corpuscular HGB Conc 33.8 g/dl (31.0-36.0); Mean Corpuscular Hemoglobin 28.2 pg (27.0-33.0); Mean Corpuscular Volume 83.4 fL (80.0-98.0); Mean Platelet Volume 10.2 fL (9.4-12.4); Monocytes Absolute Auto 0.4 X10*3/uL (0.1-1.2); Monocytes Percent Auto 6.2 % (2-11); Neutrophils Absolute Auto 4.1 x10*3/uL (2.0-8.3); Neutrophils Percent Auto 63.8 % (45-73); Platelet Count 336 X10*3/uL (160-400); Red Blood Count 5.11 X10*6/uL (4.60-5.80); Red Cell Distribution Width 13.4 % (11.0-16.0); White Blood Count 6.4 X10*3/uL (4.8-10.8)
[2023-02-09 17:58] LABS: Anion Gap 13 (12-20); Blood Urea Nitrogen 7 mg/dL (9-16); Calcium 10.1 mg/dL (8.4-10.2); Carbon Dioxide 24 mmol/L (22-29); Chloride 108 mmol/L (96-108); Creatinine Clr Calc Pharmacy 151.6; Estimated Glomerular Filt Rate > 60; Glucose Random 93 mg/dL (60-115); Sodium 141 mmol/L (135-145)
[2023-02-09 19:07] VITALS: BP 119/61; PULSE 66; RESP 18; TEMP 37; O2SAT 96
[2023-02-09 19:48] LABS: OBS Int Ctl Valid YES; OBS1 NEGATIVE (NEGATIVE)
[2023-02-09] MEDS: iohexoL 350 MG/ML 100 ML INFUS..BTL IV (21:22)
[2023-02-09 22:12] VITALS: BP 108/54; PULSE 69; RESP 18; TEMP 37; O2SAT 98
== END 2023-02-09 23:08 | disposition home or self-care (01) ==
PROVIDERS: Physician Assistant; Emergency Provider Emergency Medicine
DX: K62.5 Hemorrhage of anus and rectum (principal)
CPT/HCPCS: 36415; 74018; 74177; 80048; 82272; 85025; 99283; 99284; Q9967

== ENCOUNTER 2023-02-17 03:37 | Emergency (ER) | payer MEDICAID, SELFPAY ==
[2023-02-17 04:16] VITALS: BP 123/78; PULSE 88; RESP 16; TEMP 37.2; O2SAT 99; BMI 31.1
--- NOTE | 2023-02-17 04:20 | PC.NURSE ---
Pt is a 22 y/o male who presents for evaluation of a rash that appears on both arms at the elbow and in the axilla and along his belt-line. Rash is puritic and painful. Was last seen here on 02/03 for similar rash. Pt also reports having head congestion along with asthma symptoms, but reports those symptoms are being well managed at home, just needs a refill on his albuterol for his nebulizer. No acute distress is observed and pt is able to speak in full sentences. Reports some sinus congestion and an occasional congested cough, but denies chest pain and any fever.
--- NOTE | 2023-02-17 05:56 | PC.NURSE ---
Pt appears comfortable, no acute distress noted. Pt is sleeping, but easily arousable with verbal stimuli. Will continue to monitor.
--- NOTE | 2023-02-17 06:59 | PC.NURSE ---
Pt is easily arousable with verbal stimuli and oncoming provider was in to see the pt.
--- NOTE | 2023-02-17 07:04 | ED_ITS ---
HPI - General Adult General Chief complaint: Dyspnea Stated complaint: Asthma Time Seen by Provider: 02/17/23 06:38 Source: patient and facilities custodian Mode of arrival: ambulatory Limitations: language barrier History of Present Illness HPI narrative: Patient is a 22 year old assigned male at with a history of asthma presenting to the emergency department today with a rash and requesting an albuterol refill. Patient states that over the last few days he has had a bilateral upper arm rash. Patient states that a specific area in his left inner arm opened up and had pus come out. Patient states that he would also like a refill of his liquid albuterol. Patient denies any dizziness, lightheadedness, abdominal pain, nausea, vomiting, fever, chills, blurry vision, double vision, loss of vision, chest pain, difficulty breathing, shortness of breath, back pain, night sweats, pain with urination, increased urinary frequency, increased urinary urgency, blood in his urine or stool, syncope or a near syncopal epis ode, recent trauma or falls, bowel incontinence, bladder incontinence, bowel retention, bladder retention, or any other complaints at this time. Onset (ago): day(s) Location: left, right and upper extremity Severity: mild Severity scale (1-10): 3 Relieving factors: none Exacerbating factors: none Associated symptoms: rash Treatments prior to arrival: none Related Data Previous Rx's Medication Instructions Recorded acetaminophen 500 mg tablet 1,000 mg (2 x 500 mg) PO Q6H PRN 09/29/22 (Tylenol Extra Strength) fever or pain #20 tabs albuterol sulfate 90 mcg/actuation 2 puff inhalation Q4-6H PRN 09/29/22 aerosol inhaler (ProAir HFA) shortness of breath or wheezing #8.5 grams doxycycline hyclate 100 mg tablet 100 mg PO Q12H 7 days #14 tabs 09/29/22 prednisone 20 mg tablet 60 mg (3 x 20 mg) PO DAILY 5 days 09/29/22 #15 tabs albuterol sulfate 90 mcg/actuation 2 inh inhalation Q4-6H PRN 10/14/22 breath activated powder inhaler shortness of breath or wheezing #1 ea doxycycline hyclate 100 mg capsule 100 mg PO BID 10 days #20 caps 10/14/22 prednisone 20 mg tablet 20 mg PO DAILY 5 days #5 tabs 10/14/22 diphenhydramine HCl 25 mg capsule 25 mg PO Q8H 5 days #15 caps 01/11/23 (Benadryl) epinephrine 0.3 mg/0.3 mL 0.3 mg (0.3 mL) IM ONCE PRN 01/11/23 injection, auto-injector (EpiPen) extreme reaction #1 ea famotidine 20 mg tablet (Pepcid) 20 mg PO BID 5 days #10 tabs 01/11/23 prednisone 20 mg tablet 40 mg (2 x 20 mg) PO DAILY #10 tabs 01/11/23 meclizine 25 mg tablet 25 mg PO TID PRN dizziness #20 tabs 01/15/23 omeprazole 20 mg capsule,delayed 20 mg PO DAILY #30 caps 01/21/23 release ondansetron 4 mg disintegrating 4 mg PO Q8H PRN nausea and 01/26/23 tablet vomiting #20 tabs diphenhydramine HCl 25 mg capsule 50 mg (2 x 25 mg) PO Q6H PRN rash 02/03/23 #20 caps famotidine 20 mg tablet 20 mg PO DAILY #30 tabs 02/03/23 prednisone 20 mg tablet 60 mg (3 x 20 mg) PO DAILY 5 days 02/03/23 #15 tabs albuterol sulfate 1.25 mg/3 mL 1.25 mg (3 mL) inhalation QID PRN 02/17/23 solution for nebulization shortness of breath or wheezing #90 mL cefuroxime axetil 250 mg tablet 250 mg PO BID 7 days #14 tabs 02/17/23 Allergies Allergy/AdvReac Type Severity Reaction Status Date / Time ibuprofen [From Advil] Allergy Swelling Verified 02/17/23 03:49 omeprazole Allergy Rash Verified 02/17/23 03:49 Review of Systems Constitutional: Constitutional: Reports no additional constitutional complaints, Denies chills, Denies fever(s) and Denies night sweats Eyes: Eyes: Reports no additional eye complaints, Denies blurry vision, Denies change in vision, Denies diplopia, Denies eye discharge, Denies loss of vision and Denies eye pain ENT: Denies dizziness Cardiovascular: Cardiovascular: Reports no additional cardiovascular complaints, Denies chest pain, Denies lightheadedness, Denies Loss of Consc iousness and Denies dyspnea Respiratory: Respiratory: Reports no additional respiratory complaints and Denies dyspnea Gastrointestinal: Gastrointestinal: Reports no additional gastrointestinal complaints, Denies abdominal pain, Denies melena, Denies hematochezia, Denies change in bowel habits and Denies change in stool character Genitourinary: Genitourinary: Reports no additional male genitourinary complaints, Denies hematuria, Denies oliguria, Denies difficulty urinating, Denies dysuria, Denies urinary frequency, Denies urinary hesitancy, Denies urinary incontinence and Denies urinary urgency Musculoskeletal: Musculoskeletal: Reports no additional musculoskeletal complaints, Denies numbness and Denies tingling Integumentary/Breasts: Comments: bilateral upper arm rash Neurologic: Denies dizziness, Denies loss of vision, Denies numbness and Denies tingling Psychiatric: Psychiatric: Reports no additional psychiatric complaints Endocrine: Endocrine: Reports no additional endocrine complaints Hematologic/Lymphatic: Hematologic/Lymphatic: Reports no additional hematologic/lymphatic complaints Allergic/Immunologic: Allergic/Immunologic: Reports no additional allergic/immunologic complaints PMFSH Past Medical History Attestation statement: The following information was validated with the patient. Source: old records reviewed and nursing notes reviewed Medical History Fatty liver Asthma Surgical History S/P cholecystectomy Social History Social History Alcohol intake: never Advance Directives: No Advance Directives Information Provided: No Physical Exam ED Vital Signs: Vital Signs - 24 hr 02/17/23 04:16 02/17/23 07:13 Temperature 99.0 F Pulse Rate 88 69 Respiratory Rate 16 18 Blood Pressure 123/78 111/83 Pulse Oximetry 99 99 Oxygen Delivery Method Room Air Room Air BMI result Body Mass Index 31.1 Const General: cooperative, no acute distress, alert and awake Nutritional Appearance: well nourished Orientation/consciousness: patient oriented x3 Limitations: no limitations HENMT Head: Yes normal to inspection and Yes atraumatic Ears: hearing grossly normal bilaterally and external ears normal General nose exam: Normal external nose present, no nasal discharge noted and no epistaxis Face and sinus: Yes normal facial exam, No abrasion and No laceration Mouth: Normal oral and palatal mucosa present, no drooling and no muffled voice Eyes General: appearance normal, both eyes and all related structures Periorbital: periorbital findings normal Eyelids: Yes eyelids normal Conjunctivae: conjunctivae normal Pupils: Equal, round and reactive pupils present EOM: EOMs intact bilaterally Neck Neck: Yes normal visual inspection, Yes full ROM and Yes no lymphadenopathy Chest Chest palpation & inspection: normal inspection of the chest Resp Effort & Inspection: normal respiratory effort and able to speak in complete sentences GI Inspection: Yes normal to inspection Neuro General: patient oriented x3 and moves all extremities Cranial nerves: Yes Equal, round and reactive pupils present Cognition (Neuro): normal cognition Motor exam (neuro): 5/5 motor strength present throughout Sensory Exam: Normal double simultaneous stimulation for sensation Coordination: [id number] test normal Extrem Other: bilateral upper extremity rash containing pustules to the inner creases of the arm General: Yes full ROM and Yes capillary refill normal Psych Appearance: grossly normal Mental Status: mental status grossly normal Affect: normal affect Attitude: cooperative Thought process: Normal thought process present Thought content: Normal thought content present Insight: Good insight present (Psych) Medical Decision Making Medical Decision Making MDM Narrative: Patient is a 22 year old assigned male at with a history of asthma presenting to the emergency department today with a bilateral upper arm rash and requesting an albuterol refill. Patient's physical exam was as noted in the physical exam portion of this note. I explained my physical exam findings to the patient. I answered all questions asked by the patient. I stressed the importance of the patient taking his medication as prescribed. I stressed the importance of the patient following up with his primary care provider. I stressed the importance of the patient returning to the emergency department immediately if his symptoms were to worsen or if he were to develop any dizziness, shortness of breath, difficulty breathing, chest pain, blurry vision, loss of vision, nausea, vomiting, abdominal pain, fever, chills, back pain, or any other complaints. Patient verbalized agreement and understanding with this treatment plan and discharge. Differential Diagnosis Differential Diagnoses: The differential diagnosis associated with the presentation includes Foliculitis Rash Asthma Admission/Observation Consideration of admission/observation: Escalation of care including admission/observation considered Patient would have been admitted to the hospital had his work up had any findings where hospital admission was appropriate and his clinical presentation warranted hospital admission. Prescription Management I considered prescription management with: Antibiotic (patient prescribed an antibiotic) Discharge Plan Discharge Clinical Impression: Asthma, Folliculitis Patient Disposition: Home, Self-Care Instructions: Asthma (DC), Folliculitis (ED) Additional Instructions: Apply warm compresses to the left inner arm over the bump you feel. DO NOT POP IT YOURSELF. Allow it to come to a head and open on it's own. Follow up with your primary care provider. Return to the emergency department immediately if your symptoms worsen or if you develop any dizziness, shortness of breath, difficulty breathing, chest pain, blurry vision, loss of vision, nausea, vomiting, abdominal pain, fever, chills, back pain, or any other complaints. Aplique compresas tibias en la parte interna del brazo carol sobre el golpe que sienta. NO LO DANNY USTED MISMO. Deje que llegue a un punto cr?jami y se ritesh por s? solo. Danny un seguimiento con kamara proveedor de atenci?n primaria. Regrese al departamento de emergencias inmediatamente si trupti s?ntomas empeoran o si presenta mareos, dificultad para respirar, dificultad para respirar, dolor en el pecho, visi?n borrosa, p?rdida de la visi?n, n?useas, v?mitos, dolor abdominal, fiebre, escalofr?os, dolor de espalda o cualquier otras quejas. Prescriptions: New cefuroxime axetil 250 mg tablet 250 mg PO BID 7 Days Qty: 14 0RF albuterol sulfate 1.25 mg/3 mL solution for nebulization 1.25 mg inhalation QID PRN (Reason: shortness of breath or wheezing) Qty: 90 0RF No Action prednisone 20 mg tablet 60 mg PO DAILY 5 Days Qty: 15 0RF albuterol sulfate [ProAir HFA] 90 mcg/actuation HFA aerosol inhaler 2 puff inhalation Q4-6H PRN (Reason: shortness of breath or wheezing) Qty: 8.5 0RF doxycycline hyclate 100 mg tablet 100 mg PO Q12H 7 Days Qty: 14 0RF acetaminophen [Tylenol Extra Strength] 500 mg tablet 1,000 mg PO Q6H PRN (Reason: fever or pain) Qty: 20 0RF doxycycline hyclate 100 mg capsule 100 mg PO BID 10 Days Qty: 20 0RF prednisone 20 mg tablet 20 mg PO DAILY 5 Days Qty: 5 0RF albuterol sulfate 90 mcg/actuation aerosol powdr breath activated 2 inh inhalation Q4-6H PRN (Reason: shortness of breath or wheezing) Qty: 1 0RF omeprazole 20 mg capsule,delayed release(DR/EC) 20 mg PO DAILY Qty: 30 0RF prednisone 20 mg tablet 40 mg PO DAILY Qty: 10 0RF famotidine [Pepcid] 20 mg tablet 20 mg PO BID 5 Days Qty: 10 0RF diphenhydramine HCl [Benadryl] 25 mg capsule 25 mg PO Q8H 5 Days Qty: 15 0RF epinephrine [EpiPen] 0.3 mg/0.3 mL auto-injector 0.3 mg IM ONCE PRN (Reason: extreme reaction) Qty: 1 0RF Rx Instructions: for 2 doses meclizine 25 mg tablet 25 mg PO TID PRN (Reason: dizziness) Qty: 20 0RF ondansetron 4 mg tablet,disintegrating 4 mg PO Q8H PRN (Reason: nausea and vomiting) Qty: 20 0RF diphenhydramine HCl 25 mg capsule 50 mg PO Q6H PRN (Reason: rash) Qty: 20 0RF prednisone 20 mg tablet 60 mg PO DAILY 5 Days Qty: 15 0RF famotidine 20 mg tablet 20 mg PO DAILY Qty: 30 0RF Referrals: [facility] [place]] (Call to establish and follow up with a primary care provider. If you already have a primary care provider, please follow up with them. Llame para establecer y realizar un seguimiento con un proveedor de atenci?n primaria. Si ya tiene un proveedor de atenci?n primaria, danny un seguimiento con ?l. ) [facility] (Call to establish and follow up with a primary care provider. If you already have a primary care provider, please follow up with them. Llame para establecer y realizar un seguimiento con un proveedor de atenci?n primaria. Si ya tiene un proveedor de atenci?n primaria, danny un seguimiento con ?l. ) [facility] [Provider Group] (Call to establish and follow up with a primary care provider. If you already have a primary care provider, please follow up with them. Llame para establecer y realizar un seguimiento con un proveedor de atenci?n primaria. Si ya tiene un proveedor de atenci?n primaria, danny un seguimiento con ?l. ) Stand Alone Forms: Work/School Release Interventions: ED Discharge Assessment Last Done: 02/17/23 07:17 Discharge Date/Time: 02/17/23 07:17 Print Language: Kinyarwanda
[2023-02-17 07:13] VITALS: BP 111/83; PULSE 69; RESP 18; O2SAT 99
== END 2023-02-17 07:17 | disposition home or self-care (01) ==
PROVIDERS: Emergency Provider Emergency Medicine Emergency Medical Services
DX: J45.909 Unspecified asthma, uncomplicated (principal); L73.9 Follicular disorder, unspecified
CPT/HCPCS: 99284

== ENCOUNTER 2023-03-21 01:08 | Emergency (ER) | payer MEDICAID, SELFPAY ==
--- NOTE | ~2023-03-21 | XR_ITS ---
EXAMINATION: XR CHEST CLINICAL INFORMATION: Chest pain COMPARISON: 01/25/2023 TECHNIQUE: Frontal view of the chest was obtained. FINDINGS: The lungs are clear with no focal consolidation. No evidence of pneumothorax, pulmonary edema, or pleural effusions. The cardiomediastinal silhouette is unremarkable. No acute osseous findings. XR/XR chest 1V IMPRESSION: No acute cardiopulmonary findings.
--- NOTE | 2023-03-21 01:13 | ECG_ITS ---
Test Reason : CP Blood Pressure : / mmHG Vent. Rate : 075 BPM Atrial Rate : 075 BPM P-R Int : 144 ms QRS Dur : 108 ms QT Int : 394 ms P-R-T Axes : 043 000 -05 degrees QTc Int : 439 ms Normal sinus rhythm Minimal voltage criteria for LVH, may be normal variant ( R in aVL ) Borderline ECG When compared with ECG of 25-JAN-2023 23:55, No significant change was found Referred By: Generic ED Physician Electronically Signed By:Ld Cooley
[2023-03-21 01:21] VITALS: BP 133/79; PULSE 80; RESP 16; TEMP 36.6; O2SAT 100
[2023-03-21 01:50] LABS: MANUAL DIFF FLAG NO
[2023-03-21 01:54] LABS: Basophils Absolute Auto 0.1 X10*3/uL (0.0-0.2); Basophils Percent Auto 1.3 % (0-2); Eosinophils Absolute Auto 0.4 X10*3/uL (0.0-0.4); Eosinophils Percent Auto 5.1 % (0-4); Hematocrit 38.3 % (42.0-52.0); Hemoglobin 13.1 g/dl (14.0-18.0); Imm Gran Abs Auto 0.02 X10*3/uL (0.00-0.03); Imm Gran Pct Auto 0.2 % (0.0-0.4); Lymphocytes Absolute Auto 2.7 X10*3/uL (1.2-4.9); Lymphocytes Percent Auto 32.3 % (20-40); Mean Corpuscular HGB Conc 34.2 g/dl (31.0-36.0); Mean Corpuscular Hemoglobin 28.1 pg (27.0-33.0); Mean Platelet Volume 9.7 fL (9.4-12.4); Monocytes Absolute Auto 0.6 X10*3/uL (0.1-1.2); Monocytes Percent Auto 7.1 % (2-11); Neutrophils Absolute Auto 4.6 x10*3/uL (2.0-8.3); Platelet Count 326 X10*3/uL (160-400); Red Blood Count 4.67 X10*6/uL (4.60-5.80); Red Cell Distribution Width 13.6 % (11.0-16.0); White Blood Count 8.4 X10*3/uL (4.8-10.8)
[2023-03-21 02:05] LABS: Alanine Aminotransferase 16 U/L (0-40); Albumin Level 4.3 g/dL (3.5-5.0); Alkaline Phosphatase 58 U/L (39-117); Anion Gap 14 (12-20); Aspartate Amino Transferase 17 U/L (5-37); Bilirubin Total 0.3 mg/dL (0.0-1.0); Blood Urea Nitrogen 12 mg/dL (9-16); Calcium 9.7 mg/dL (8.4-10.2); Carbon Dioxide 21 mmol/L (22-29); Chloride 109 mmol/L (96-108); Creatinine Clr Calc Pharmacy 147.4; Estimated Glomerular Filt Rate > 60; Glucose Random 99 mg/dL (60-115); Potassium 3.7 mmol/L (3.3-5.1); Sodium 140 mmol/L (135-145); Total Protein 7.4 g/dL (6.5-8.0)
[2023-03-21 02:13] LABS: Troponin-I High Sensitivity < 2.7 ng/L (<3.5-35.0)
[2023-03-21 03:03] VITALS: PULSE 62
[2023-03-21 03:16] LABS: Appearance Urine Clear; Color Urine Yellow; Glucose Urine UA Negative (Negative); Leukocyte Esterase Urine Negative (Negative); Nitrite Urine Negative (Negative); PH 6.5 (5.0-9.0); Specific Gravity - Urine <= 1.005 (1.005-1.025); Urine Blood Negative (Negative); Urine Ketones Negative (Negative); Urine Protein Negative (Neg-Trace)
[2023-03-21 04:17] VITALS: BP 108/66; PULSE 64; RESP 18; TEMP 36.7; O2SAT 96
--- NOTE | 2023-03-21 04:28 | ED_ITS ---
HPI - Chest Pain General Chief Complaint: Chest Pain Stated Complaint: chest pain Time Seen by Provider: 03/21/23 04:27 Source: patient Mode of arrival: ambulatory Limitations: language barrier (Patient speaks Yakut only, party director used) History of Present Illness HPI narrative: 23-year-old male with a history of asthma who presents emergency department for evaluation of 2 days of chest tightness worse with breathing and coughing, cough productive of thick green phlegm, shortness of breath, dyspnea on exertion and using his inhaler more frequently with no relief his symptoms. Patient states that his symptoms feel similar to when he had pneumonia in the past. He had subjective fevers at home but denied chills. He denied rhinorrhea, sore throat, vomiting or diarrhea. He states he does have nausea. Denied myalgias arthralgias Related Data Previous Rx's Medication Instructions Recorded acetaminophen 500 mg tablet 1,000 mg (2 x 500 mg) PO Q6H PRN 09/29/22 (Tylenol Extra Strength) fever or pain #20 tabs albuterol sulfate 90 mcg/actuation 2 puff inhalation Q4-6H PRN 09/29/22 aerosol inhaler (ProAir HFA) shortness of breath or wheezing #8.5 grams doxycycline hyclate 100 mg tablet 100 mg PO Q12H 7 days #14 tabs 09/29/22 prednisone 20 mg tablet 60 mg (3 x 20 mg) PO DAILY 5 days 09/29/22 #15 tabs albuterol sulfate 90 mcg/actuation 2 inh inhalation Q4-6H PRN 10/14/22 breath activated powder inhaler shortness of breath or wheezing #1 ea doxycycline hyclate 100 mg capsule 100 mg PO BID 10 days #20 caps 10/14/22 prednisone 20 mg tablet 20 mg PO DAILY 5 days #5 tabs 10/14/22 diphenhydramine HCl 25 mg capsule 25 mg PO Q8H 5 days #15 caps 01/11/23 (Benadryl) epinephrine 0.3 mg/0.3 mL 0.3 mg (0.3 mL) IM ONCE PRN 01/11/23 injection, auto-injector (EpiPen) extreme reaction #1 ea famotidine 20 mg tablet (Pepcid) 20 mg PO BID 5 days #10 tabs 01/11/23 prednisone 20 mg tablet 40 mg (2 x 20 mg) PO DAILY #10 tabs 01/11/23 meclizine 25 mg tablet 25 mg PO TID PRN dizziness #20 tabs 01/15/23 omeprazole 20 mg capsule,delayed 20 mg PO DAILY #30 caps 01/21/23 release ondansetron 4 mg disintegrating 4 mg PO Q8H PRN nausea and 01/26/23 tablet vomiting #20 tabs diphenhydramine HCl 25 mg capsule 50 mg (2 x 25 mg) PO Q6H PRN rash 02/03/23 #20 caps famotidine 20 mg tablet 20 mg PO DAILY #30 tabs 02/03/23 prednisone 20 mg tablet 60 mg (3 x 20 mg) PO DAILY 5 days 02/03/23 #15 tabs albuterol sulfate 1.25 mg/3 mL 1.25 mg (3 mL) inhalation QID PRN 02/17/23 solution for nebulization shortness of breath or wheezing #90 mL cefuroxime axetil 250 mg tablet 250 mg PO BID 7 days #14 tabs 02/17/23 albuterol sulfate 90 mcg/actuation 2 puff inhalation Q4-6H PRN 03/21/23 aerosol inhaler (ProAir HFA) shortness of breath or wheezing #8.5 grams doxycycline hyclate 100 mg tablet 100 mg PO Q12H 7 days #14 tabs 03/21/23 prednisone 20 mg tablet 60 mg (3 x 20 mg) PO DAILY 5 days 03/21/23 #15 tabs Allergies Allergy/AdvReac Type Severity Reaction Status Date / Time ibuprofen [From Advil] Allergy Swelling Verified 03/21/23 01:21 omeprazole Allergy Rash Verified 03/21/23 01:21 Review of Systems 2 Review of Systems: Yes all other systems are reviewed and are negative COUNTS INCLUDE 234 BEDS AT THE [facility] Past Medical History COUNTS INCLUDE 234 BEDS AT THE [facility] Narrative: Social history: He denies tobacco, alcohol and drug use. Medical History Fatty liver Asthma Surgical History S/P cholecystectomy Social History Social History Alcohol intake: never Smoked in Last 30 Days: No Use of substances other than those prescribed or required for medical reasons: No Advance Directives: No Advance Directives Information Provided: No Physical Exam 2 Vital Signs: Vital Signs: Last Vital Signs Temp 98.0 F 03/21/23 04:17 Pulse 64 03/21/23 04:17 Resp 18 03/21/23 04:17 BP 108/66 03/21/23 04:17 Pulse Ox 96 03/21/23 04:17 O2 Del Method Room Air 03/21/23 04:17 BMI result Body Mass Index 30.0 Vital signs were normal Exam: General: Awake, alert in no distress Head: Normocephalic, atraumatic EENT: PERRL, Lids normal, sclera normal, conjunctiva normal, nose normal , ears normal, throat without erythema or exudates Neck: Supple, no adenopathy, no trachea midline or C-spine tenderness Lung: breath sounds symmetric, no wheezing, rales or rhonchi Chest: symmetric movement, nontender Heart: regular rate and rhythm, normal S1, S2 no murmurs or rubs Abdomen: soft, non-tender, nondistended, normal bowel sounds Back: no vertebral tenderness, no CVAT Extremities: no deformities, moves all extremities symmetrically Neuro: Awake, alert, oriented, normal speech, cranial nerves intact, moves all extremities symmetrically Psych: Pleasant, cooperative Medical Decision Making Medical Decision Making [facility] Narrative: 22-year-old male with a history of asthma who presents emergency department for evaluation of 2 days of productive cough, chest tightness, shortness of breath, fever in using his inhaler more frequently with less effect. Patient's vital signs were normal. Physical examination was unremarkable pain Differential diagnosis includes was not limited to pneumonia, bronchitis, asthma exacerbation, pneumothorax, myocardial infarction, myocardial ischemia, costochondritis Following evaluation: CBC, CMP, troponin, urinalysis, chest x-ray, EKG Patient was treated with the following: Prednisone 60 mg orally and doxycycline 100 mg orally 04:47 My interpretation patient's laboratory evaluation as follows: CBC and CMP were normal. Troponin was below detectable limits 12 EKG was unremarkable Chest x-ray was unremarkable Patient's symptoms are consistent with acute bronchitis causing an asthma exacerbation. Patient was prescribed doxycycline 100 mg twice a day for 7 days , prednisone 60 mg once a day for 5 days and albuterol inhaler 2 puffs every 4 hours as needed for wheezing. He was given printed and verbal instructions discharged home. Lab Data [facility] Lab Attestation statement: I reviewed the patient's lab results. 03/21/23 01:46 03/21/23 01:46 Labs: Lab Results 03/21/23 03/21/23 Range/Units 01:46 03:09 WBC 8.4 (4.8-10.8) X10*3/uL RBC 4.67 (4.60-5.80) X10*6/uL Hgb 13.1 L (14.0-18.0) g/dl Hct 38.3 L (42.0-52.0) % MCV 82.0 (80.0-98.0) fL MCH 28.1 (27.0-33.0) pg MCHC 34.2 (31.0-36.0) g/dl RDW 13.6 (11.0-16.0) % Plt Count 326 (160-400) X10*3/uL MPV 9.7 (9.4-12.4) fL Immature Gran % (Auto) 0.2 (0.0-0.4) % Neut % (Auto) 54.0 (45-73) % Lymph % (Auto) 32.3 (20-40) % Clark % (Auto) 7.1 (2-11) % Eos % (Auto) 5.1 H (0-4) % Baso % (Auto) 1.3 (0-2) % Lymph # (Auto) 2.7 (1.2-4.9) X10*3/uL Clark # (Auto) 0.6 (0.1-1.2) X10*3/uL Eos # (Auto) 0.4 (0.0-0.4) X10*3/uL Baso # (Auto) 0.1 (0.0-0.2) X10*3/uL Abs Immat Gran (auto) 0.02 (0.00-0.03) X10*3/uL Absolute Neuts (auto) 4.6 (2.0-8.3) x10*3/uL Absolute Nucleated RBC 0.000 (0.0-0.012) X10*3/uL Nucleated RBC % (auto) 0.0 (0.0-0.2) /100WBC Sodium 140 (135-145) mmol/L Potassium 3.7 (3.3-5.1) mmol/L Chloride 109 H (96-108) mmol/L Carbon Dioxide 21 L (22-29) mmol/L Anion Gap 14 (12-20) BUN 12 (9-16) mg/dL Creatinine 0.76 (0.5-1.4) mg/dL Estim Creat Clear Calc 147.4 Estimated GFR > 60 Random Glucose 99 (60-115) mg/dL Calcium 9.7 (8.4-10.2) mg/dL Total Bilirubin 0.3 (0.0-1.0) mg/dL AST 17 (5-37) U/L ALT 16 (0-40) U/L Alkaline Phosphatase 58 (39-117) U/L Troponin I High Sens < 2.7 (<3.5-35.0) ng/L Total Protein 7.4 (6.5-8.0) g/dL Albumin 4.3 (3.5-5.0) g/dL Urine Color Yellow Urine Appearance Clear Urine pH 6.5 (5.0-9.0) Ur Specific [place] <= 1.005 (1.005-1.025) Urine Protein Negative (Neg-Trace) mg/dL Urine Glucose (UA) Negative (Negative) mg/dL Urine Ketones Negative (Negative) mg/dL Urine Blood Negative (Negative) Urine Nitrite Negative (Negative) Ur Leukocyte Esterase Negative (Negative) Independent Interpretation I performed an independent interpretation of an: Plain X-Ray Interpretation: My interpretation of the patient's chest x-ray is as follows: No acute disease My interpretation patient's 12 EKG done at 01:17 is as follows: Normal sinus rhythm rate of 75, normal LA interval, QRS duration QTC interval, no ST segment elevation, no inverted T-wave in lead 3, no PACs, no PVCs-this is a normal EKG Radiology Impression Discussion of test interpretation with radiology: I have reviewed the radiologist's reading. Radiologist Impression: XR chest 1V IMPRESSION: No acute cardiopulmonary findings. Dictated By: Nir Joseph MD Prescription Management I considered prescription management with: Antibiotic and Other (Steroid) Chronic Conditions Patient?s care impacted by: Other (Asthma) Discharge Plan Discharge Clinical Impression: Asthma exacerbation Qualifiers: Asthma severity: moderate Asthma persistence: persistent Qualified Code(s): J 45.41 - Moderate persistent asthma with (acute) exacerbation Chest pain Qualifiers: Chest pain type: unspecified Qualified Code(s): R07.9 - Chest pain, unspecified Acute bronchitis Qualifiers: Bronchitis organism: other organism Qualified Code(s): J20.8 - Acute bronchitis due to other specified organisms Patient Disposition: Home, Self-Care Instructions: Acute Bronchitis (ED) Additional Instructions: Your blood work was unremarkable. Your EKG was normal. Your chest x-ray revealed no evidence of pneumonia. Your symptoms are consistent with bronchitis which is inflammation and infection of your breathing tubes. This is causing a flare-up of your asthma. Take prednisone 20 mg pills, 3 pills once a day for 5 days. While you ?are taking prednisone, do not take any NSAIDs (Motrin, Advil, ibuprofen, Aleve, naproxen). Take doxycycline 100 mg, 1 pill every 12 hours for 7 days Follow-up with your doctor in 2 days. Please return to the emergency department if your symptoms get worse or if you develop any symptoms that are concerning to you. Prescriptions: New prednisone 20 mg tablet 60 mg PO DAILY 5 Days Qty: 15 0RF albuterol sulfate [ProAir HFA] 90 mcg/actuation HFA aerosol inhaler 2 puff inhalation Q4-6H PRN (Reason: shortness of breath or wheezing) Qty: 8.5 0RF doxycycline hyclate 100 mg tablet 100 mg PO Q12H 7 Days Qty: 14 0RF No Action prednisone 20 mg tablet 60 mg PO DAILY 5 Days Qty: 15 0RF albuterol sulfate [ProAir HFA] 90 mcg/actuation HFA aerosol inhaler 2 puff inhalation Q4-6H PRN (Reason: shortness of breath or wheezing) Qty: 8.5 0RF doxycycline hyclate 100 mg tablet 100 mg PO Q12H 7 Days Qty: 14 0RF acetaminophen [Tylenol Extra Strength] 500 mg tablet 1,000 mg PO Q6H PRN (Reason: fever or pain) Qty: 20 0RF doxycycline hyclate 100 mg capsule 100 mg PO BID 10 Days Qty: 20 0RF prednisone 20 mg tablet 20 mg PO DAILY 5 Days Qty: 5 0RF albuterol sulfate 90 mcg/actuation aerosol powdr breath activated 2 inh inhalation Q4-6H PRN (Reason: shortness of breath or wheezing) Qty: 1 0RF omeprazole 20 mg capsule,delayed release(DR/EC) 20 mg PO DAILY Qty: 30 0RF prednisone 20 mg tablet 40 mg PO DAILY Qty: 10 0RF famotidine [Pepcid] 20 mg tablet 20 mg PO BID 5 Days Qty: 10 0RF diphenhydramine HCl [Benadryl] 25 mg capsule 25 mg PO Q8H 5 Days Qty: 15 0RF epinephrine [EpiPen] 0.3 mg/0.3 mL auto-injector 0.3 mg IM ONCE PRN (Reason: extreme reaction) Qty: 1 0RF Rx Instructions: for 2 doses meclizine 25 mg tablet 25 mg PO TID PRN (Reason: dizziness) Qty: 20 0RF ondansetron 4 mg tablet,disintegrating 4 mg PO Q8H PRN (Reason: nausea and vomiting) Qty: 20 0RF diphenhydramine HCl 25 mg capsule 50 mg PO Q6H PRN (Reason: rash) Qty: 20 0RF prednisone 20 mg tablet 60 mg PO DAILY 5 Days Qty: 15 0RF famotidine 20 mg tablet 20 mg PO DAILY Qty: 30 0RF cefuroxime axetil 250 mg tablet 250 mg PO BID 7 Days Qty: 14 0RF albuterol sulfate 1.25 mg/3 mL solution for nebulization 1.25 mg inhalation QID PRN (Reason: shortness of breath or wheezing) Qty: 90 0RF
[2023-03-21] MEDS: predniSONE 20 MG TABLET 60 MG PO (04:48)
[2023-03-21] MEDS: Doxycycline Monohydrate 100 MG CAPSULE PO (04:48)
== END 2023-03-21 05:12 | disposition home or self-care (01) ==
PROVIDERS: Emergency Provider Emergency Medicine Emergency Medical Services
DX: J45.41 Moderate persistent asthma with (acute) exacerbation (principal); R07.89 Other chest pain; J20.8 Acute bronchitis due to other specified organisms; R05.9 Cough, unspecified; Z79.899 Other long term (current) drug therapy
CPT/HCPCS: 36415; 71045; 80053; 81003; 84484; 85025; 93005; 99283; 99285

== ENCOUNTER → 2023-03-21 01:13 | Outpatient (BNV) | payer MEDICAID, SELFPAY | PROVIDERS: Emergency Provider Emergency Medicine Emergency Medical Services; Visit Provider Internal Medicine Cardiovascular Disease | DX: R07.9 Chest pain, unspecified (principal) | CPT/HCPCS: 93010 ==

== ENCOUNTER 2023-04-04 18:28 | Emergency (ER) | payer MEDICAID, SELFPAY ==
--- NOTE | ~2023-04-04 | XR_ITS ---
EXAMINATION: XR CHEST CLINICAL INFORMATION: Chest pain COMPARISON: Chest radiograph 03/21/2023. TECHNIQUE: Frontal view of the chest was obtained. FINDINGS: Clear lungs. No pleural effusion or pneumothorax. Cardiomediastinal silhouette is unchanged. XR/XR chest 1V IMPRESSION: No acute cardiopulmonary abnormality.
--- NOTE | 2023-04-04 18:31 | ECG_ITS ---
Test Reason : chest pain Blood Pressure : / mmHG Vent. Rate : 086 BPM Atrial Rate : 086 BPM P-R Int : 140 ms QRS Dur : 104 ms QT Int : 370 ms P-R-T Axes : 046 002 -11 degrees QTc Int : 442 ms Normal sinus rhythm Minimal voltage criteria for LVH, may be normal variant ( R in aVL ) Nonspecific T wave abnormality Abnormal ECG When compared with ECG of 21-MAR-2023 01:17, No significant change was found Referred By: Generic ED Physician Electronically Signed By:Ld Cooley
[2023-04-04 18:45] VITALS: BP 127/72; PULSE 72; RESP 18; TEMP 36.5; O2SAT 100; BMI 31.0
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
[2023-04-04 19:05] LABS: MANUAL DIFF FLAG NO
[2023-04-04 19:08] LABS: Basophils Absolute Auto 0.1 X10*3/uL (0.0-0.2); Basophils Percent Auto 0.8 % (0-2); Eosinophils Absolute Auto 0.1 X10*3/uL (0.0-0.4); Eosinophils Percent Auto 1.4 % (0-4); Hematocrit 42.1 % (42.0-52.0); Hemoglobin 14.3 g/dl (14.0-18.0); Imm Gran Abs Auto 0.05 X10*3/uL (0.00-0.03); Imm Gran Pct Auto 0.5 % (0.0-0.4); Lymphocytes Absolute Auto 1.8 X10*3/uL (1.2-4.9); Lymphocytes Percent Auto 18.4 % (20-40); Mean Corpuscular Volume 82.4 fL (80.0-98.0); Mean Platelet Volume 9.7 fL (9.4-12.4); Monocytes Absolute Auto 0.6 X10*3/uL (0.1-1.2); Monocytes Percent Auto 5.6 % (2-11); Neutrophils Absolute Auto 7.3 x10*3/uL (2.0-8.3); Neutrophils Percent Auto 73.3 % (45-73); Platelet Count 320 X10*3/uL (160-400); Red Blood Count 5.11 X10*6/uL (4.60-5.80); Red Cell Distribution Width 13.3 % (11.0-16.0); White Blood Count 9.9 X10*3/uL (4.8-10.8)
[2023-04-04 19:13] LABS: INTERNATIONAL NORM RATIO 1.1 (0.9-1.1); Prothrombin Time 13.9 SEC (11.1-13.3)
[2023-04-04 19:16] LABS: Partial Thromboplastin Time 36.6 SEC (26.0-36.8)
[2023-04-04 19:26] LABS: COVID-19 Test Negative (Negative); IDNOW Serial# 152EDE1D
[2023-04-04 19:27] LABS: IDNOW Serial# 9DB6401D; Influenza A Negative (Negative); Influenza B2 Negative (Negative)
[2023-04-04 19:30] LABS: Alanine Aminotransferase 19 U/L (0-40); Albumin Level 4.4 g/dL (3.5-5.0); Alkaline Phosphatase 68 U/L (39-117); Anion Gap 13 (12-20); Aspartate Amino Transferase 17 U/L (5-37); Bilirubin Total 0.4 mg/dL (0.0-1.0); Blood Urea Nitrogen 10 mg/dL (9-16); Calcium 9.5 mg/dL (8.4-10.2); Carbon Dioxide 23 mmol/L (22-29); Chloride 106 mmol/L (96-108); Creatinine Clr Calc Pharmacy 149.9; Estimated Glomerular Filt Rate > 60; Glucose Random 94 mg/dL (60-115); Potassium 3.9 mmol/L (3.3-5.1); Sodium 138 mmol/L (135-145); Total Protein 7.9 g/dL (6.5-8.0)
[2023-04-04 19:36] LABS: B Type Natriuretic Peptide < 10 pg/mL (<100)
[2023-04-04 19:38] LABS: Troponin-I High Sensitivity < 2.7 ng/L (<3.5-35.0)
[2023-04-04 21:50] VITALS: BP 135/85; PULSE 69; RESP 16; TEMP 36.9; O2SAT 98
[2023-04-04 22:09] LABS: Troponin-I High Sensitivity < 2.7 ng/L (<3.5-35.0)
== END 2023-04-04 22:27 | disposition home or self-care (01) ==
PROVIDERS: Nurse Practitioner Family; Physician Assistant; Emergency Provider Emergency Medicine
DX: R07.89 Other chest pain (principal); Z79.899 Other long term (current) drug therapy; Z11.52 Encounter for screening for COVID-19
CPT/HCPCS: 36415; 71045; 80053; 83880; 84484; 85025; 85610; 85730; 87502; 87635; 93005; 99283; 99284

== ENCOUNTER → 2023-04-04 18:31 | Outpatient (BNV) | payer MEDICAID, SELFPAY | PROVIDERS: Emergency Provider Emergency Medicine; Visit Provider Internal Medicine Cardiovascular Disease | DX: R94.31 Abnormal electrocardiogram [ECG] [EKG] (principal) | CPT/HCPCS: 93010 ==

== ENCOUNTER 2023-05-06 17:20 | Emergency (ER) | payer MEDICAID, SELFPAY ==
--- NOTE | 2023-05-06 | ECG_ITS ---
Test Reason : CP Blood Pressure : / mmHG Vent. Rate : 079 BPM Atrial Rate : 079 BPM P-R Int : 142 ms QRS Dur : 106 ms QT Int : 368 ms P-R-T Axes : 048 004 -13 degrees QTc Int : 421 ms Normal sinus rhythm Incomplete right bundle branch block Minimal voltage criteria for LVH, may be normal variant ( R in aVL ) Nonspecific T wave abnormality Abnormal ECG When compared with ECG of 04-APR-2023 18:34, No significant change was found Referred By: Generic ED Physician Electronically Signed By:BRIONNA LOWRY
--- NOTE | ~2023-05-06 | XR_ITS ---
EXAMINATION: XR CHEST CLINICAL INFORMATION: Chest pain COMPARISON: None available. TECHNIQUE: Frontal view of the chest was obtained. FINDINGS: No significant abnormality is noted involving the heart, lungs, mediastinum, bony thorax or soft tissues. XR/XR chest 1V IMPRESSION: Unremarkable chest examination.
[2023-05-06 17:44] VITALS: BP 116/75; PULSE 78; RESP 20; TEMP 37; O2SAT 98
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
[2023-05-06 17:48] LABS: MANUAL DIFF FLAG NO
[2023-05-06 17:51] LABS: Basophils Absolute Auto 0.1 X10*3/uL (0.0-0.2); Eosinophils Absolute Auto 0.1 X10*3/uL (0.0-0.4); Eosinophils Percent Auto 0.9 % (0-4); Hematocrit 38.5 % (42.0-52.0); Hemoglobin 13.1 g/dl (14.0-18.0); Imm Gran Abs Auto 0.03 X10*3/uL (0.00-0.03); Imm Gran Pct Auto 0.4 % (0.0-0.4); Lymphocytes Absolute Auto 1.7 X10*3/uL (1.2-4.9); Lymphocytes Percent Auto 22.4 % (20-40); Mean Corpuscular Hemoglobin 27.8 pg (27.0-33.0); Mean Corpuscular Volume 81.7 fL (80.0-98.0); Mean Platelet Volume 9.7 fL (9.4-12.4); Monocytes Absolute Auto 0.6 X10*3/uL (0.1-1.2); Monocytes Percent Auto 7.6 % (2-11); Neutrophils Absolute Auto 5.2 x10*3/uL (2.0-8.3); Neutrophils Percent Auto 67.7 % (45-73); Platelet Count 340 X10*3/uL (160-400); Red Blood Count 4.71 X10*6/uL (4.60-5.80); Red Cell Distribution Width 13.3 % (11.0-16.0); White Blood Count 7.7 X10*3/uL (4.8-10.8)
[2023-05-06 18:05] LABS: Alanine Aminotransferase 23 U/L (0-40); Albumin Level 4.4 g/dL (3.5-5.0); Alkaline Phosphatase 64 U/L (39-117); Anion Gap 12 (12-20); Aspartate Amino Transferase 20 U/L (5-37); Bilirubin Total 0.4 mg/dL (0.0-1.0); Blood Urea Nitrogen 7 mg/dL (9-16); Calcium 9.7 mg/dL (8.4-10.2); Carbon Dioxide 27 mmol/L (22-29); Chloride 110 mmol/L (96-108); Creatinine Clr Calc Pharmacy 143.6; Estimated Glomerular Filt Rate > 60; Glucose Random 85 mg/dL (60-115); Magnesium 1.7 mg/dL (1.6-2.6); Potassium 3.5 mmol/L (3.3-5.1); Sodium 145 mmol/L (135-145); Total Protein 7.4 g/dL (6.5-8.0)
[2023-05-06 18:14] LABS: COVID-19 Test Negative (Negative); IDNOW Serial# 08D9AD1C
[2023-05-06 18:16] LABS: Troponin-I High Sensitivity < 2.7 ng/L (<3.5-35.0)
== END 2023-05-06 21:17 | disposition left against medical advice (07) ==
PROVIDERS: Physician Assistant; Emergency Provider Emergency Medicine
DX: R07.89 Other chest pain (principal); R06.02 Shortness of breath; Z11.52 Encounter for screening for COVID-19; Z79.899 Other long term (current) drug therapy
CPT/HCPCS: 71045; 80053; 83735; 84484; 85025; 87635; 93005; 99283

== ENCOUNTER → 2023-05-06 17:31 | Outpatient (BNV) | payer MEDICAID, SELFPAY | PROVIDERS: Emergency Provider Emergency Medicine; Visit Provider Internal Medicine | DX: R07.9 Chest pain, unspecified (principal) | CPT/HCPCS: 93010 ==

== ENCOUNTER 2023-05-11 22:05 | Emergency (ER) | payer MEDICAID, SELFPAY ==
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
[2023-05-11 22:17] VITALS: BP 126/76; PULSE 98; RESP 18; TEMP 36.8; O2SAT 97; BMI 26.8
== END 2023-05-12 00:45 | disposition left against medical advice (07) ==
PROVIDERS: Emergency Provider Emergency Medicine
DX: S09.92XA Unspecified injury of nose, initial encounter (principal); Y04.2XXA Assault by strike against or bumped into by another person, initial encounter; Y93.9 Activity, unspecified; Y92.9 Unspecified place or not applicable; Y99.8 Other external cause status
CPT/HCPCS: 70160; 99281; 99283